=== PATIENT | female | born 1940 | race Two or more races ===

== ENCOUNTER 2024-11-18 17:33 | Inpatient (IN) | payer MEDICARE, MEDICAID, SELFPAY ==
[2024-11-18] VITALS (7 sets, daily range): BP systolic 92–117; BP diastolic 60–71; PULSE 75–100; RESP 18–96; TEMP 36.4–36.8; O2SAT 96–100; BMI 29.7; BMI 22.8
--- NOTE | 2024-11-18 19:12 | XR_ITS ---
Examination: CT cervical spine without contrast 2-D sagittal reconstructions 2-D coronal reconstructions 3-D reconstructions. Exam date and time:November 18, 20242007 hours INDICATIONS: Patient fell today with injury to the neck, neck pain CTDI:vol (mGy) 7.5 DLP: (mGycm) 165 Technique: Multiple 2 mm axial sections of the cervical spine have been obtained. The coronal and sagittal reconstructions have been obtained. 3-D reconstructions have been obtained. Low dose protocols were performed. One or more of the following dose reduction techniques were used; automated exposure control, adjustment of the mA and/or KV according to patient size, use of iterative reconstruction technique. Findings: Axial sections demonstrate intact base of the skull. C1 exhibit satisfactory relationship to the odontoid. No acute cervical vertebral body fracture seen. Alignment posterior spinous processes satisfactory. Small radiolucent areas throughout all visualized bones which may represent focal osteopenia, recommend three-month follow-up plain films cervical spine Impression: No acute cervical fracture.
--- NOTE | 2024-11-18 19:12 | XR_ITS ---
Examination: CT brain head without contrast. 2-D sagittal coronal reconstructions Date and time of exam:November 18, 20242007 hours INDICATIONS: Patient fell today with injury to the head, head pain and dizziness CTDI: vol (mGy):46.8 DLP: (mGycm):875 Technique: Multiple CT axial sections of the brain have been obtained, 5 mm slice thickness. Contrast has not been administered. 2-D sagittal, coronal reconstructions have been obtained Low dose protocols were performed. One or more of the following dose reduction techniques were used; automated exposure control, adjustment of the mA and/or KV according to patient size, use of iterative reconstruction technique. Findings: No significant ventricular enlargement. Intra-axial or extra-axial hemorrhage density is not seen. No mass effect or midline shift Basal cisterns are not remarkable. Fourth ventricle is midline. Cranial vault intact. Impression: Negative for acute hemorrhage, mass effect or midline shift
--- NOTE | 2024-11-18 19:12 | XR_ITS ---
Examination: AP chest single view TECHNIQUE: AP portable upright chest single view Date and time: November 18, 2024 at 1917 hours INDICATIONS: Patient fell one week ago with injury of the chest, chest pain FINDINGS: Normal heart size No pneumothorax Prominent osteopenia Clavicles ribs appear intact IMPRESSION: No pneumothorax pulmonary contusion or hemothorax
--- NOTE | 2024-11-18 19:12 | XR_ITS ---
Examination: CT chest, without intravenous contrast. CT abdomen, without intravenous contrast. CT pelvis, without intravenous contrast. 2-D sagittal and coronal reconstructions. 3-D reconstructions. Date and time of exam:November 18, 20242012 hours INDICATIONS: Patient fell today with injury of the chest and abdomen, chest pain and abdomen pain CTDI vol (mgy) 9.5 DLP (MGycm)585 Technique: Multiple CT images, 3.0 mm slice thickness, obtained chest, abdomen, pelvis, with the high-resolution 64 slice scanner.. Sagittal and coronal 2-D reconstructions are obtained. 3-D reconstructions Low dose protocols were performed. One or more of the following dose reduction techniques were used; automated exposure control, adjustment of the mA and/or KV according to patient size, use of iterative reconstruction technique. Findings: Thoracic aorta and pulmonary arteries intact No pneumothorax or pulmonary contusion The manubrium and body of the sternum intact No thoracic lumbar or sacral Liver is irregular in contour Ribs appear intact Mild fluid in the abdomen including peripheral to the liver and spleen, no liver or definite splenic laceration or renal laceration on this noncontrast study Aorta normal size Negative for pneumoperitoneum Urinary bladder is intact Bones of the pelvis hips intact IMPRESSION: Thoracic aorta pulmonary arteries intact No pneumothorax or pulmonary contusion Suspect primary hepatocellular disease Mild ascites No abdominal parenchymal laceration on this noncontrast study If symptoms persist, recommend repeating this study with intravenous contrast
[2024-11-18 19:52] LABS: Basophils # (Auto) 0.1 Thou/mm3 (0.0-0.2); Basophils % (Auto) 1 % (0-2.5); Eosinophils % (Auto) 0 % (0-10); Hematocrit 35.9 % (36.0-46.0); Hemoglobin 12.3 g/dL (12.0-16.0); Immature Granulocytes % (Auto) 1 % (0-0); Immature Granulocytes Auto 0.04 Thou/mm3 (0.00-0.00); Lymphocytes # (Auto) 1.1 Thou/mm3 (1.0-4.8); Lymphocytes % (Auto) 13 % (10-50); Mean Corpuscular HGB Conc 34.3 g/dl (31.0-37.0); Mean Corpuscular Hemoglobin 28.6 pg (25.0-35.0); Mean Corpuscular Volume 84 fL (80-100); Monocytes # (Auto) 0.6 Thou/mm3 (0.0-0.8); Monocytes % (Auto) 7 % (0-12); Neutrophils # (Auto) 6.8 Thou/mm3 (1.8-7.7); Neutrophils % (Auto) 79 % (37-80); Nucleated Red Blood Cell % 0 /100 WBC (0); Platelet Count 292 Thou/mm3 (140-440); RDW Standard Deviation 50.5 fL (36.4-46.3); White Blood Count 8.6 Thou/mm3 (3.6-11.0)
--- NOTE | 2024-11-18 19:53 | EDNOTE_ITS ---
ED Dizzyness RME/HPI General Chief Complaint: Dizziness Stated Complaint: GENERAL WEAKNESS Time Seen by Provider: 11/18/24 19:11 Arrival date/time: 11/18/24 17:33 83F with history of HTN, thyroid disorder, DM, and dementia presents to ED with family member for several days of increased generalized weakness and some dizziness. Today, patient fell and hit the front of her head. Unwitnessed fall and unknown LOC. Patient denies N/V, CP, SOB, ab pain, vision changes, and seizures. Patient has no pain right now. Normal intake/output. Limitations: no limitations Related Data Home Medications ?Medication ?Instructions ?Recorded ?Confirmed atorvastatin 10 mg tablet 10 mg PO DAILY 11/19/24/0 12/08 empagliflozin 25 mg tablet 25 mg PO DAILY 11/19/2412/08 (Jardiance) levothyroxine 88 mcg tablet 88 mcg PO DAILY 11/19/24 0 11/19/24 semaglutide 3 mg tablet (Rybelsus) 3 mg PO .bedtime 11/19/24 sitagliptin phos 100 mg-metformin 1 tab PO DAILY 11/1911/19/24 ER 1,000 mg tablet,extend rel 24h mp (Janumet XR) Allergies Allergy/AdvReac Type Severity Reaction Status Date / Time No Known Allergies Allergy Verified 11/18/24 17:57 Review of Systems Review of Systems Systems Reviewed: All systems reviewed, normal except as documented Constitutional Constitutional: Reports system reviewed and no additional complaints, except as documented, Reports as per HPI, Denies fever(s), Denies headache(s) and Reports weakness ENT Ears, Nose, Mouth, and Throat: Reports as per HPI, Denies disequilibrium, Denies headache(s) and Reports vertigo Cardiovascular Cardiovascular: Reports system reviewed and no additional complaints, except as documented, Denies chest pain and Denies dyspnea Respiratory Respiratory: Reports system reviewed and no additional complaints, except as documented, Denies cough and Denies dyspnea Gastrointestinal Gastrointestinal: Reports system reviewed and no additional complaints, except as documented, Denies abdominal pain, Denies nausea and Denies vomiting Neurologic Neurologic: Reports system reviewed and no additional complaints, except as documented, Denies confusion, Denies disequilibrium, Denies headache(s), Reports vertigo and Reports weakness Psychiatric Psychiatric: Denies confusion Past Medical History Social History SMOKING STATUS: Current every day smoker ED Exam General Limitations: Present no limitations General appearance: Present alert and in no apparent distress Head Head exam: Present atraumatic Eye Eye exam: Present normal appearance, PERRL and EOMI ENT ENT exam: Present normal exam, normal oropharynx and mucous membranes moist Neck Neck exam: Present normal inspection, full ROM and trachea midline Chest Chest inspection: Present normal inspection and symmetric chest wall rise Respiratory Respiratory exam: Present normal lung sounds bilaterally Cardiovascular Cardiovascular exam: Present regular rate, normal rhythm and normal heart sounds Abdominal Exam Abdominal exam: Present soft and normal bowel sounds Extremities Exam Extremities exam: Present normal inspection and full ROM Back Exam Back exam: Present normal inspection and full ROM Neurological Exam Neurological exam: Present alert, oriented X3 and CN II-XII intact Psychiatric Psychiatric exam: Present normal affect and normal mood Skin Skin exam: Present warm, dry, intact and normal color Course Quality Measures none Orders Category Date Time Status COVID-19 Screening Questionnaire NOW Care 11/18/24 21:41 Active Decision to Admit X1 Care 11/18/24 21:40 Completed EKG (ED ONLY) *Do not use* NOW Care 11/18/24 19:12 Completed Consult to Nephrology Stat Cons 11/18/24 21:[address] cervical spine wo con Stat Exams 11/18/24 19:[address] chest abdomen pelvis wo Stat Exams 11/18/24 19:[address] head/brain wo con Stat Exams 11/18/24 19:12 Completed EKG (ED Only) Stat Exams 11/18/24 19:12 Ordered XR chest 1V portable Stat Exams 11/18/24 19:12 Completed B-Type Natriuretic Peptide Stat Lab 11/18/24 19:39 Completed CBC Stat Lab 11/18/24 19:39 Completed Comprehensive Metabolic Panel Stat Lab 11/18/24 19:39 Completed Creatine Kinase Stat Lab 11/18/24 19:39 Completed Free T4 (Free Thyroxine) Stat Lab 11/18/24 19:39 Completed Lactate (Lactic Acid) Stat Lab 11/18/24 19:39 Completed Magnesium Stat Lab 11/18/24 19:39 Completed Procalcitonin Stat Lab 11/18/24 19:39 Completed Thyroid Stimulating Hormone Stat Lab 11/18/24 19:39 Completed Troponin I Stat Lab 11/18/24 19:39 Completed Urinalysis, C/S if Indicated Stat Lab 11/18/24 20:49 Completed VBG [Venous Blood Gas] Stat Lab 11/18/24 19:39 Completed ALBUTEROL RT 0.5ml [Proventil Rt 0.5ml] Med 11/18/24 21:49 Discontinued 2.5 mg INH X1 ONE Dextrose 5%-Water [D5w] 500 ml Med 11/19/24 10:01 Pending Sodium Bicarb 8.4% 50ml Vial* 88.23 meq IV 100 mls/hr Furosemide [Lasix Inj] Med 11/18/24 21:49 Discontinued 40 mg IVP X1 ONE Sod Polystyrene Sulfon Susp [Kayexalate Susp] Med 11/18/24 21:49 Discontinued 30 gm PO X1 ONE Sodium Chloride Rt Carole 0.9% [NS Rt Carole 0.9%] Med 11/18/24 21:49 Active 3 ml INH PRN PRN Vital Signs Vital signs: Vital Signs Temperature 98.2 F 11/18/24 17:34 Pulse Rate 93 11/18/24 17:34 Respiratory Rate 19 11/18/24 17:34 Blood Pressure 92/60 11/18/24 17:34 Pulse Oximetry (%) 97 11/18/24 17:34 Oxygen Delivery Method Room Air 11/18/24 17:34 O2 at 97% on RA and WNLs Dizziness MDM Narrative MDM Narrative:: 83F with history of HTN, thyroid disorder, DM, and dementia presents to ED with family member for several days of increased generalized weakness and some dizziness. Today, patient fell and hit the front of her head. Unwitnessed fall and unknown LOC. Patient denies N/V, CP, SOB, ab pain, vision changes, and seizures. Patient has no pain right now. Normal intake/output. Physical exam reveals normal pupil response and EOM. CN II-XII grossly intact. Neck ROM normal. Speech normal. Normal WOB. No ab/back tenderness. Extremities normal, except for mild skin abrasion on L knee/lower leg. No tenderness. ROM and gait intact. Strength equal bilaterally. Patient is afebrile, calm, and alert. CT unremarkable. UA contaminated. CBC unremarkable. CMP remarkable for K 5.6, with low bicarb and elevated Cr. Normal anion-gap. Blood pH low at 7.2. Spoke to Dr. Sanford, who recommends bicarb drop and urine electrolytes to check for renal tubular acidosis; she will consult. Spoke to IM resident reporting to Dr. Mejia IM, who will admit. Patient data External records reviewed:: [facility] previous records Clinical information provided by:: patient Social determinants that could affect healthcare access:: none Patient has the following chronic illnesses:: none How is presenting disease/condition affected by chronic disease/condition?: no chronic disease Evaluation data The following diagnostics were reviewed and interpreted by me:: lab results, radiology exam(s) and EKG tracing(s) Lab and/or radiology exams considered but not ordered:: ordered Interpretation Summary: above Medications / Prescriptions Medications or Prescriptions considered but not ordered:: ordered Medication administrations:: Medication Administration History Acetaminophen (Acetaminophen 325 Mg Tablet) 650 mg PO Q6H PRN PRN Reason: Fever >99.5 Stop: 12/18/24 22:07 Acetaminophen (Acetaminophen 325 Mg Tablet) 1,000 mg PO Q6H PRN PRN Reason: PAIN SCALE 1-3 (mild Stop: 12/18/24 22:07 Dextrose (Dextrose 50%-Water Inj 50 Ml Syringe) 25 ml IV Q15MIN PRN PRN Reason: BG 50-70 responsive npo pt Stop: 12/18/24 22:07 Dextrose (Dextrose 50%-Water Inj 50 Ml Syringe) 50 ml IV Q15MIN PRN PRN Reason: BG <50 OR BG <70 & pt unresponsive Stop: 12/18/24 22:07 Docusate Sodium (Docusate Sod 100 Mg Capsule) 100 mg PO QDAY [facility]; Protocol Stop: 12/19/24 08:59 Glucagon (Glucagon Inj 1 Mg Vial) 1 mg IM Q15MIN PRN PRN Reason: BG <70, and no IV access Heparin Sodium (Porcine) (Heparin Sod Inj 5000 Unit/Ml Vial) 5,000 unit SC Q8HR [facility] Stop: 12/03/24 05:59 Sodium Bicarbonate 88.23 meq/ (Dextrose) 588.23 mls @ 100 mls/hr IV .Q5H53M [facility] Stop: 12/19/24 10:00 Sodium Bicarbonate 88.23 meq/ (Dextrose) 588.23 mls @ 100 mls/hr IV .Q5H53M [facility] Stop: 11/19/24 10:00 Last Admin: 11/18/24 22:39 Dose: 100 mls/hr Documented By: JALEN Insulin Human Lispro (Insulin Lispro (Admelog) 1 Unit/0.01 Ml Unit) 0 unit SC AC [facility]; Protocol Stop: 12/19/24 07:29 Levothyroxine Sodium (Levothyroxine Sodium 100 Mcg Tablet) 100 mcg PO ACBR [facility] Stop: 12/19/24 05:59 Nicotine (Nicotine Patch 21 Mg/24 Hr Patch.Td24) 21 mg TOP QDAY [facility] Stop: 12/19/24 08:59 Ondansetron HCl (Ondansetron Inj 2 Mg/Ml Inj 2 Ml) 4 mg IVP Q6H PRN; Protocol PRN Reason: NAUSEA OR VOMITING Stop: 12/18/24 22:07 Sennosides (Senna Tablet) 1 tab PO QDAY [facility]; Protocol Stop: 12/19/24 08:59 Sodium Chloride (Sodium Chloride Rt Carole 0.9% 3 Ml Nebu) 3 ml INH PRN PRN PRN Reason: SOLN Stop: 12/18/24 21:48 Last Admin: 11/18/24 22:26 Dose: 3 ml Documented By: NEELIMA Discontinued Medications Albuterol (Albuterol Rt 2.5 Mg/0.5 Ml Nebu) 2.5 mg INH X1 ONE Stop: 11/18/24 21:50 Last Admin: 11/18/24 22:26 Dose: 2.5 mg Documented By: NEELIMA Furosemide (Furosemide Inj 10 Mg/Ml Vial 2 Ml) 40 mg IVP X1 ONE Stop: 11/18/24 21:50 Last Admin: 11/18/24 22:38 Dose: 40 mg Documented By: JALEN Sodium Chloride (Ns) 500 mls @ 999 mls/hr IV .Q31M ONE Stop: 11/18/24 23:12 Last Infusion: 11/19/24 00:27 Dose: Infused Documented By: Admin: 11/18/24 22:49 Dose: 999 mls/hr Documented By: BIBIANA Sodium Polystyrene Sulfonate (Sod Polystyrene Sulfon Susp 15 Gm/60 Ml Btl) 30 gm PO X1 ONE Stop: 11/18/24 21:50 Last Admin: 11/18/24 22:44 Dose: 30 gm Documented By: JALEN above Consultations Consultation(s) initiated? (list below): Yes Diagnosis Dizziness Differential Diagnosis: adverse reaction to drug, benign paroxysmal positional vertigo, orthostatic hypotension, vertebral basilar insufficiency, cerebrovascular accident, acute vestibular neuronitis, transient cerebral ischemia and other (dehydration, fall, CHI, soft tissue contusion, UTI, weakness, electrolyte abnormality, CATE) Most likely diagnosis given after review of the tests above:: weakness Admission Indicated Admission indicated?: indicated Admission Request Was there a request for admission?: Yes Admission Attestation Admission request attestation: Discussed case with [Dr. Mejia] from Hospitalist service regarding admission. Discussed patients ED course, exam findings, labs, and radiology results. The Hospitalist [agrees] to accept the patient for admission. Disposition Plan Disposition Plan: Admit Discharge Plan Plan Patient Disposition: Admit Acute Care w/in Hospital Problem List Clinical Impression: Weakness
[2024-11-18 20:24] LABS: B-Type Natriuretic Peptide 26 pg/mL (0-100)
[2024-11-18 20:37] LABS: Alanine Aminotransferase < 7 U/L (10-49); Albumin, Serum 4.5 gm/dL (3.4-4.8); Albumin/Globulin Ratio 1.6 (1.2-2.2); Alkaline Phosphatase 80 U/L (46-116); Anion Gap 11 (7-16); Aspartate Amino Transferase 18 U/L (0-34); BUN/Creatinine Ratio 28 Ratio (12-20); Bilirubin,Total 0.2 mg/dL (0.3-1.2); Blood Urea Nitrogen 45 mg/dL (9-23); Calcium 9.6 mg/dL (8.3-10.6); Calcium (Corrected) 9.6 mg/dL (8.5-10.1); Chloride 113 mMol/L (98-107); Creatine Kinase 117 U/L (34-171); Creatinine (Component) 1.6 mg/dL (0.6-1.3); Estimated Creatinine Clearance 21.4 mL/min (>60); Free T4 (Free Thyroxine) 1.69 ng/dL (0.89-1.76); Globulin 2.8 gm/dL (2.3-3.5); Glucose 126 mg/dL (74-106); Magnesium 2.4 mg/dL (1.6-2.6); Osmolality,Calculated 287 (275-295); Potassium 5.6 mMol/L (3.4-5.1); Procalcitonin 0.07 ng/ml (0.0-0.49); Sodium 137 mMol/L (136-145); Thyroid Stimulating Hormone 0.18 uIU/mL (0.55-4.78); Total Protein 7.3 gm/dL (5.7-8.2); Troponin I < 0.020 ng/mL (0.0-0.045); eGFR 32 See Note
[2024-11-18 20:39] LABS: Carbon Dioxide 13.1 mMol/L (20.0-31.0)
[2024-11-18 21:31] LABS: Base Excess, Venous -14 (-3-3); O2 Saturation, Venous 70 % (96-97); PCO2, Venous 35 mmHg (36-56); PO2, Venous 39 mmHg (15-58)
[2024-11-18 21:41] LABS: Collection Type, Urine Clean Catch
[2024-11-18 22:10] LABS: Bilirubin,Urine Negative (Negative); Blood,Urine 1+ (Negative); Clarity,Urine Clear (Clear/Hazy); Color,Urine Lt-Yellow (Lt Yel-Yel); Culture Indicated,Urine Contaminated; Glucose, Urine 4+ (Negative); Hyaline Casts,Urine < 1 /hpf (0-1); Ketones,Urine Trace (Negative); Leukocyte Esterase,Urine Positive (Negative); Nitrite,Urine Negative (Negative); Protein,Urine 1+ (Neg - Trace); RBC,Urine 35 /hpf (0-3); Specific Gravity,Urine 1.019 (1.001-1.035); Squamous Epithelial Cell,Urine 24 /hpf (0-5); Urobilinogen,Urine Negative mg/dL (0.0-1.0); WBC,Urine 11 /hpf (0-5)
--- NOTE | 2024-11-18 22:12 | PD.RESHP ---
Documentation for date of: 11/18/24 [facility] History of Present Illness Chief complaint: Weakness History of present illness: 83-year-old female active smoker with past medical history of dementia, diabetes mellitus, hypothyroidism who presented to the ED with generalized weakness and dizziness. Patient yesterday was going to get the mail and tripped and hit her head. Daughter who is the primary caregiver reports the patient has been having weakness on and off for the past 2 years. Daughter states that she had recent labs about 1 week ago that were reviewed by her PCP which all were found normal. States that she had adequate p.o. intake. Here in the ED patient was found with a bicarb of 13, potassium of 5.[address] Sanford who recommended admission and place the patient on bicarb drip. Patient at this time denies any shortness of breath, chest pain, abdominal pain, nausea, vomiting, headache, blurry vision. ED course: ED vitals: BP 92/60, HR 93, RR 19, O2 sat 97% on room air ED labs: CBC unremarkable, VBG shows some acidosis, CHEM panel shows potassium 5.6, bicarb 13, BUN 45, creatinine 1.6, EGFR 32, glucose 126, head CT negative, cervical spine CT negative for fracture, chest x-ray negative, CT abdomen pelvis shows some mild ascites, PMHx: As above SX Hx: Wrist surgery Social Hx: Current smoker 2 packs/day, denies alcohol use, denies illicit substances including THC FH X: Unknown Review of Systems Review of Systems Systems Reviewed: All systems reviewed, normal except as documented Narrative Review of Systems: All 12 systems reviewed and found normal as otherwise stated in the HPI. Exam Vital Signs Temp Pulse Resp BP Pulse Ox O2 Del Method 97.6 F 84 19 117/71 99 Room Air 11/18/24 18:54 11/18/24 18:54 11/18/24 18:54 11/18/24 18:54 11/18/24 18:54 11/18/24 18:54 Narrative Exam Physical Exam GENERAL: NAD, GCS of 15, demented, frail HEENT: Moist mucosa. Eyes open, symmetrical, & clear CARDIO: Heart RRR, no obvious murmurs PULM: No noted coughing/dyspnea CTA B/L, no R/W/R GI: Abdomen soft, nondistended, no pain on palpation. BSx4 SKIN/MSK/EXT: No wounds/rashes/edema/amputations, no pain on palpation. Pedal pulses present B/L NEURO:able to move all 4 extremities Results: Labs 11/18/24 19:39 11/18/24 19:39 Labs: Short CBC 11/18/24 Range/Units 19:39 WBC 8.6 (3.6-11.0) Thou/mm3 Hgb 12.3 (12.0-16.0) g/dL Hct 35.9 L (36.0-46.0) % Plt Count 292 (140-440) Thou/mm3 BMP 11/18/24 19:39 Sodium 137 Potassium 5.6 H Chloride 113 H Carbon Dioxide 13.1 L* BUN 45 H Creatinine 1.6 H Glucose 126 H Calcium 9.6 Cardiac Enzymes 11/18/24 Range/Units 19:39 Total Creatine Kinase 117 (34-171) U/L Troponin I < 0.020 (0.0-0.045) ng/mL Liver Function 11/18/24 Range/Units 19:39 Total Bilirubin 0.2 L (0.3-1.2) mg/dL AST 18 (0-34) U/L ALT < 7 L (10-49) U/L Alkaline Phosphatase 80 (46-116) U/L Albumin 4.5 (3.4-4.8) gm/dL Urine 11/18/24 Range/Units 20:49 Urine Color Lt-Yellow (Lt Yel-Yel) Urine Clarity Clear (Clear/Hazy) Urine pH 6.0 (5.0-7.0) Ur Specific [place] 1.019 (1.001-1.035) Urine Protein 1+ A (Neg - Trace) Urine Glucose (UA) 4+ A (Negative) ABG Interpretation ABG results: 11/18/24 19:39 VBG pH 7.20 L VBG pCO2 35 L VBG pO2 39 VBG Base Excess -14 L Quality Measures Quality Measures none Advance care planning discussed with:: patient Medications Home Medications and Allergies Home Medications ?Medication ?Instructions ?Recorded ?Confirmed ?Type atorvastatin 10 mg tablet 10 mg PO DAILY 11/19/24 11/19/24 History empagliflozin 25 mg tablet 25 mg PO DAILY 11/19/24 11/19/24 History (Jardiance) levothyroxine 88 mcg tablet 88 mcg PO DAILY 11/19/24 11/19/24 History semaglutide 3 mg tablet (Rybelsus) 3 mg PO .bedtime 11/19/24 11/19/24 History sitagliptin phos 100 mg-metformin 1 tab PO DAILY 11/19/24 11/19/24 History ER 1,000 mg tablet,extend rel 24h mp (Janumet XR) Allergies Allergy/AdvReac Type Severity Reaction Status Date / Time No Known Allergies Allergy Verified 11/18/24 17:57 Visit Medications Sodium Bicarbonate 88.23 meq/ (Dextrose) 588.23 mls @ 100 mls/hr IV .Q5H53M [facility] Stop: 12/18/24 22:06 Sodium Chloride (Sodium Chloride Rt Carole 0.9% 3 Ml Nebu) 3 ml INH PRN PRN PRN Reason: SOLN Stop: 12/18/24 21:48 Discontinued Medications Albuterol (Albuterol Rt 2.5 Mg/0.5 Ml Nebu) 2.5 mg INH X1 ONE Stop: 11/18/24 21:50 Furosemide (Furosemide Inj 10 Mg/Ml Vial 2 Ml) 40 mg IVP X1 ONE Stop: 11/18/24 21:50 Sodium Polystyrene Sulfonate (Sod Polystyrene Sulfon Susp 15 Gm/60 Ml Btl) 30 gm PO X1 ONE Stop: 11/18/24 21:50 Assessment & Plan Plan 83-year-old female active smoker with past medical history as stated above who presented to the ED due to generalized weakness. Admitted for acidosis. 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 Sanford who recommended admission and place the patient on bicarb drip Initially with a bicarb of 13, VBG shows pH of 7.2, patient denies any diarrhea, likely renal losses ? IVF's ? Bicarb drip ? Nephro consulted appreciate recs ? Albuterol, Lasix, Kayexalate for hyperkalemia ? Follow-up CMP ? Follow-up EKG ?urine lytes ordered ? renal US orderd #Tobacco use ?Nicotine patch as needed #Diabetes mellitus type 2 ? SSI ? Hypoglycemia protocol in place #Hypothyroidism ? Levothyroxine resumed as taken at home Health Maintenance: Disposition: Med telemetry Fluids: None Feeding: Thrombo prophylaxis: SCDs Gastric Ulcer prophylaxis: Pantoprazole CODE STATUS: Full code Case discussed with my attending Dr. Roberto Miller MD PGY-1 Attending Provider Attestation/Addendum I have examined the patient, reviewed labs and imaging findings, discussed the case with the resident(s), and reviewed entered orders. I agree with the plan of care as outlined in this note, with these additional summaries/recommendations: 83-year-old female with past medical history DM, hyperlipidemia, dementia, current smoker presented to ED with chief complaint of worsening generalized weakness, decreased energy, decreased urine output for last 2 days. Labs show CATE with potassium 5.6 and bicarb of 13.1 with normal anion gap. Nephrology was consulted who recommended admission for further workup and management of CATE on CKD. Bicarb drip initiated, will DC in a.m. Likely intrarenal source of NAGMA, will obtain urine lites to further classify NAGMA. Family denies any recent infections, new medications. Gerry Mejia MD
[2024-11-18] MEDS: ALBUTEROL RT 2.5 MG/0.5 ML NEBU INH (22:26)
[2024-11-18] MEDS: SODIUM CHLORIDE RT SOL 0.9% 3 ML NEBU INH (22:26)
[2024-11-18] MEDS: FUROSEMIDE INJ 10 MG/ML VIAL 2 ML 40 MG IVP (22:38)
[2024-11-18] MEDS: Sodium Bicarb 8.4% 50ml Vial* 88.23 MEQ in DEXTROSE 5%-WATER 500 ML 100 MEQ IV (22:39)
[2024-11-18] MEDS: SOD POLYSTYRENE SULFON SUSP 15 GM/60 ML BTL 30 GM PO (22:44)
[2024-11-18] MEDS: SODIUM CHLORIDE 0.9% 500 ML 500 ML 999 ML IV (22:49)
[2024-11-18 23:20] LABS: Chloride,Urine Random 81.4 mMol/L (55.0-125.0); Potassium,Urine Random 39 mMol/L (12-62); Sodium,Urine Random 66.5 mMol/L (20.0-110.0)
[2024-11-19] VITALS (8 sets, daily range): BP systolic 101–118; BP diastolic 57–62; PULSE 69–89; RESP 15–98; TEMP 36.1–36.8; O2SAT 95–98; BMI 28.0
--- NOTE | 2024-11-19 | XR_ITS ---
Examination: Retroperitoneal ultrasound, complete Technique: Multiple high resolution grayscale images of the retroperitoneum obtained, including kidneys and bladder. Exam date and time:November 19, 2024 0550 hours INDICATIONS: Weakness dizziness today with acute renal insufficiency FINDINGS: Right kidney 8.6 cm renal cortex 1.3 cm Left kidney 9.2 cm renal cortex 1.8 cm Moderate bilateral renal parenchymal scar formation No hydronephrosis Contracted urinary bladder IMPRESSION: Small kidneys with bilateral renal cortical thinning
[2024-11-19] MEDS: Sodium Bicarb 8.4% 50ml Vial* 88.23 MEQ in DEXTROSE 5%-WATER 500 ML 100 MEQ IV (05:36)
[2024-11-19] MEDS: HEPARIN SOD INJ 5000 UNIT/ML VIAL SC ×3 (05:36→21:37)
[2024-11-19] MEDS: LEVOTHYROXINE SODIUM 100 MCG TABLET PO (05:36)
[2024-11-19 05:52] LABS: Basophils # (Auto) 0.1 Thou/mm3 (0.0-0.2); Basophils % (Auto) 1 % (0-2.5); Eosinophils # (Auto) 0.1 Thou/mm3 (0.0-0.5); Eosinophils % (Auto) 1 % (0-10); Hematocrit 32.5 % (36.0-46.0); Hemoglobin 11.6 g/dL (12.0-16.0); Immature Granulocytes % (Auto) 0 % (0-0); Immature Granulocytes Auto 0.03 Thou/mm3 (0.00-0.00); Lymphocytes % (Auto) 13 % (10-50); Mean Corpuscular HGB Conc 35.7 g/dl (31.0-37.0); Mean Corpuscular Hemoglobin 28.9 pg (25.0-35.0); Mean Corpuscular Volume 81 fL (80-100); Monocytes # (Auto) 0.5 Thou/mm3 (0.0-0.8); Monocytes % (Auto) 7 % (0-12); Neutrophils # (Auto) 6.2 Thou/mm3 (1.8-7.7); Neutrophils % (Auto) 78 % (37-80); Nucleated Red Blood Cell % 0 /100 WBC (0); Platelet Count 289 Thou/mm3 (140-440); RDW Standard Deviation 47.4 fL (36.4-46.3); Red Blood Count 4.02 Miln/mm3 (4.00-5.20); White Blood Count 7.9 Thou/mm3 (3.6-11.0)
[2024-11-19 06:01] LABS: Glucose Estimated Average 171 mg/dL (80-131); Hemoglobin A1C 7.6 % Hgb (4.8-6.0)
[2024-11-19 06:15] LABS: Alanine Aminotransferase < 7 U/L (10-49); Albumin, Serum 4.3 gm/dL (3.4-4.8); Albumin/Globulin Ratio 1.7 (1.2-2.2); Alkaline Phosphatase 75 U/L (46-116); Anion Gap 14 (7-16); Aspartate Amino Transferase 19 U/L (0-34); BUN/Creatinine Ratio 25 Ratio (12-20); Bilirubin,Total 0.3 mg/dL (0.3-1.2); Blood Urea Nitrogen 35 mg/dL (9-23); Calcium 9.5 mg/dL (8.3-10.6); Calcium (Corrected) 9.5 mg/dL (8.5-10.1); Carbon Dioxide 15.9 mMol/L (20.0-31.0); Chloride 104 mMol/L (98-107); Creatinine (Component) 1.4 mg/dL (0.6-1.3); Estimated Creatinine Clearance 26.1 mL/min (>60); Globulin 2.5 gm/dL (2.3-3.5); Glucose 151 mg/dL (74-106); Osmolality,Calculated 279 (275-295); Phosphorous 3.6 mg/dL (2.4-5.1); Potassium 3.7 mMol/L (3.4-5.1); Sodium 134 mMol/L (136-145); Total Protein 6.8 gm/dL (5.7-8.2); eGFR 38 See Note
[2024-11-19] MEDS: DOCUSATE SOD 100 MG CAPSULE PO (09:47)
[2024-11-19] MEDS: SENNA TABLET 1 TAB PO (09:47)
[2024-11-19] MEDS: NICOTINE PATCH 21 MG/24 HR PATCH.TD24 TOP (09:48)
--- NOTE | 2024-11-19 11:47 | PD.RESPRO ---
Documentation for date of: 11/19/24 Subjective Subjective Interval history: the Exam Vital Signs Temp Pulse Resp BP Pulse Ox O2 Del Method 98.3 F 72 15 118/61 98 Room Air 11/19/24 08:00 11/19/24 08:00 11/19/24 08:00 11/19/24 08:00 11/19/24 08:00 11/19/24 08:00 Objective Labs 11/19/24 05:07 11/19/24 05:07 Labs: Laboratory Results - last 24 hr 11/18/24 11/18/24 11/19/24 19:39 20:49 05:07 WBC 8.6 7.9 RBC 4.30 4.02 Hgb 12.3 11.6 L Hct 35.9 L 32.5 L MCV 84 81 MCH 28.6 28.9 MCHC 34.3 35.7 RDW Std Deviation 50.5 H 47.4 H Plt Count 292 289 Neut % (Auto) 79 78 Lymph % (Auto) [address] [place] % (Auto) 7 7 Eos % (Auto) 0 1 Baso % (Auto) 1 1 Neut # (Auto) 6.8 6.2 Lymph # (Auto) 1.[address] # (Auto) 0.6 0.5 Eos # (Auto) 0.0 0.1 Baso # (Auto) 0.1 0.1 Immature Gran # (Auto) 0.04 H 0.03 H Absolute Nucleated RBC 0.00 0.00 Immature Gran % 1 H 0 Nucleated RBC % 0 0 VBG pH 7.20 L VBG pCO2 35 L VBG pO2 39 VBG O2 Sat (Alexis) 70 L VBG Base Excess -14 L Sodium 137 134 L Potassium 5.6 H 3.7 D Chloride 113 H 104 Carbon Dioxide 13.1 L* 15.9 L Anion Gap 11 14 BUN 45 H 35 H Creatinine 1.6 H 1.4 H Estim Creat Clear Calc 21.4 L 26.1 L eGFR 32 L 38 L BUN/Creatinine Ratio 28 H 25 H Glucose 126 H [address] Glu mg/dL 171 H Hemoglobin A1c 7.6 H Calculated Osmolality 287 279 Lactic Acid 1.0 Calcium 9.6 9.5 Corrected Calcium 9.6 9.5 Phosphorus 3.6 Magnesium 2.4 2.0 Total Bilirubin 0.2 L 0.3 AST 18 19 ALT < 7 L < 7 L Alkaline Phosphatase 80 75 Total Creatine Kinase 117 Troponin I < 0.020 B-Natriuretic Peptide 26 Total Protein 7.3 6.8 Albumin 4.5 4.3 Globulin 2.8 2.5 Albumin/Globulin Ratio 1.6 1.7 Procalcitonin 0.07 TSH 0.18 L Free T4 1.69 Ur Collection Type Clean Catch Urine Color Lt-Yellow Urine Clarity Clear Urine pH 6.0 Ur Specific [place] 1.019 Urine Protein 1+ A Urine Glucose (UA) 4+ A Urine Ketones Trace Urine Blood 1+ A Urine Nitrite Negative Urine Bilirubin Negative Urine Urobilinogen (Auto) Negative Ur Leukocyte Esterase Positive Urine RBC 35 H Urine WBC 11 H Ur Squamous Epith Cells 24 H Urine Bacteria None Hyaline Casts < 1 Ur Culture Indicated? Contaminated Ur Random Sodium 66.5 Ur Random Potassium 39 Ur Random Chloride 81.4 ABG Interpretation ABG results: 11/18/24 19:39 VBG pH 7.20 L VBG pCO2 35 L VBG pO2 39 VBG Base Excess -14 L Quality Measures Quality Measures none Assessment & Plan Assessment Current Active Medications: Generic Name Dose Route Start Last Admin Trade Name Freq PRN Reason Stop Dose Admin Acetaminophen 650 mg 11/18/24 22:08 Acetaminophen 325 Mg Tablet PO 12/18/24 22:07 Q6H PRN Fever >99.5 Acetaminophen 1,000 mg 11/18/24 22:08 Acetaminophen 325 Mg Tablet PO 12/18/24 22:07 Q6H PRN PAIN SCALE 1-3 (mild Citric Acid/Sodium Citrate 30 ml 11/19/24 10:00 Citric Acid/Sodium Citr 15 Ml Udc (Bicitra) PO 12/19/24 09:59 BID FAUSTINA Dextrose 25 ml 11/18/24 22:08 Dextrose 50%-Water Inj 50 Ml Syringe IV 12/18/24 22:07 Q15MIN PRN BG 50-70 responsive npo pt Dextrose 50 ml 11/18/24 22:08 Dextrose 50%-Water Inj 50 Ml Syringe IV 12/18/24 22:07 Q15MIN PRN BG <50 OR BG <70 & pt unresponsive Docusate Sodium 100 mg 11/19/24 09:00 11/19/24 09:47 Docusate Sod 100 Mg Capsule PO 12/19/24 08:59 100 mg QDAY FAUSTINA Administration Protocol Glucagon 1 mg 11/18/24 22:08 Glucagon Inj 1 Mg Vial IM Q15MIN PRN BG <70, and no IV access Heparin Sodium (Porcine) 5,000 unit 11/19/24 06:00 11/19/24 05:36 Heparin Sod Inj 5000 Unit/Ml Vial SC 12/03/24 05:59 5,000 unit Q8HR FAUSTINA Administration Insulin Human Lispro 0 unit 11/19/24 07:30 11/19/24 07:05 Insulin Lispro (Admelog) 1 Unit/0.01 Ml Unit SC 12/19/24 07:29 Not Given AC [facility] Protocol Levothyroxine Sodium 88 mcg 11/20/24 06:00 Levothyroxine Sodium 88 Mcg Tablet PO 12/20/24 05:59 ACBR FAUSTINA Nicotine 21 mg 11/19/24 09:00 11/19/24 09:48 Nicotine Patch 21 Mg/24 Hr Patch.Td24 TOP 12/19/24 08:59 21 mg QDAY FAUSTINA Administration Ondansetron HCl 4 mg 11/18/24 22:08 Ondansetron Inj 2 Mg/Ml Inj 2 Ml IVP 12/18/24 22:07 Q6H PRN NAUSEA OR VOMITING Protocol Sennosides 1 tab 11/19/24 09:00 11/19/24 09:47 Senna Tablet PO 12/19/24 08:59 1 tab QDAY FAUSTINA Administration Protocol Sodium Chloride 3 ml 11/18/24 21:49 11/18/24 22:26 Sodium Chloride Rt Carole 0.9% 3 Ml Nebu INH 12/18/24 21:48 3 ml PRN PRN Administration SOLN
--- NOTE | 2024-11-19 11:53 | PD.RESCONSUL ---
HPI Data of Consult Consult date: 11/19/24 Requesting Physician: Miesha Patel MD Admitting Provider: Gerry Mejia MD Attending Provider: Miesha Patel MD Primary Care Provider: Ijeoma Freeman MD Consult Narrative Reason for consult: CATE, metabolic acidosis History of present illness: Ms. Wade is a 83-year-old female, Greek only speaker, patient's granddaughter contributed to H&P. Active smoker with past medical history of dementia, diabetes mellitus, hypothyroidism who presented to the ED with generalized weakness and dizziness and mechanical fall. Per patient's granddaughter, she has a past medical history of dementia, and has been having frequent episodes of forgetfulness, unable to reliably state her symptoms. Patient has been tripping over and falling recently though denied passing out. Denied head injury. Also denied diarrhea or vomiting. Per granddaughter, patient's her oral intake has been poor. At the ED initial vitals showed blood pressure 92/60, heart rate 93, saturating well on room air, CBC showed mild anemia, CHEM panel pertinent for metabolic acidosis, normal anion gap, acute kidney injury, creatinine 1.6. VBG was done which showed findings consistent with metabolic acidosis pH 7.20, pCO2 35 and pO2 39. Nephrology was consulted for acute kidney injury and metabolic acidosis. ED course: ED vitals: BP 92/60, HR 93, RR 19, O2 sat 97% on room air ED labs: CBC unremarkable, VBG shows some acidosis, CHEM panel shows potassium 5.6, bicarb 13, BUN 45, creatinine 1.6, EGFR 32, glucose 126, head CT negative, cervical spine CT negative for fracture, chest x-ray negative, CT abdomen pelvis shows some mild ascites. PMHx: As above SX Hx: Wrist surgery Social Hx: Current smoker 2 packs/day, denies alcohol use, denies illicit substances including THC FH X: Unknown cc:: cc: Miesha Patel MD Review of Systems Review of Systems Narrative Review of Systems: General: Denies fevers or chills HEENT: Denies congestion or sore throat Heart: Denies chest pain or palpitations Lungs: Denies shortness of breath or cough Abdomen: Denies diarrhea, nausea, vomiting, constipation, bright red blood per rectum or melena Genitourinary: Denies frequency, urgency, dysuria, or hematuria Musculoskeletal: Denies joint pain, denies muscular pain Neurology: Denies any numbness, tingling Review of systems otherwise negative except what is mentioned above. Past Medical History Past Medical History CARDIAC: Positive Hypercholesterolemia and Hypertension; Negative Congestive Heart Failure RESPIRATORY: Negative Chronic Obstructive Pulmonary Disease (COPD) GENITOURINARY: Negative Renal Disease ENDOCRINE: Positive Diabetes Mellitus Type 1; Negative Diabetes Mellitus Type 2 OTHER HISTORY: Positive Hospitalization and Falls (Last 11/18/2024); Negative Blood Transfusions or Anesthesia Reactions Surgical History SURGICAL: Positive Abdominal Surgery and Joint Replacement (Wrist surgery.) Social History SMOKING STATUS: Current every day smoker Exam Vital Signs Temp Pulse Resp BP Pulse Ox O2 Del Method 98.3 F 72 15 118/61 98 Room Air 11/19/24 08:00 11/19/24 08:00 11/19/24 08:00 11/19/24 08:00 11/19/24 08:00 11/19/24 08:00 Results Labs 11/20/24 04:47 11/20/24 04:47 Labs: Short CBC 11/18/24 11/19/24 Range/Units 19:39 05:07 WBC 8.6 7.9 (3.6-11.0) Thou/mm3 Hgb 12.3 11.6 L (12.0-16.0) g/dL Hct 35.9 L 32.5 L (36.0-46.0) % Plt Count 292 289 (140-440) Thou/mm3 BMP 11/18/24 11/19/24 19:39 05:07 Sodium 137 134 L Potassium 5.6 H 3.7 D Chloride 113 H 104 Carbon Dioxide 13.1 L* 15.9 L BUN 45 H 35 H Creatinine 1.6 H 1.4 H Glucose 126 H 151 H Calcium 9.6 9.5 Cardiac Enzymes 11/18/24 Range/Units 19:39 Total Creatine Kinase 117 (34-171) U/L Troponin I < 0.020 (0.0-0.045) ng/mL Liver Function 11/18/24 11/19/24 Range/Units 19:39 05:07 Total Bilirubin 0.2 L 0.3 (0.3-1.2) mg/dL AST 18 19 (0-34) U/L ALT < 7 L < 7 L (10-49) U/L Alkaline Phosphatase 80 75 (46-116) U/L Albumin 4.5 4.3 (3.4-4.8) gm/dL Urine 11/18/24 Range/Units 20:49 Urine Color Lt-Yellow (Lt Yel-Yel) Urine Clarity Clear (Clear/Hazy) Urine pH 6.0 (5.0-7.0) Ur Specific [place] 1.019 (1.001-1.035) Urine Protein 1+ A (Neg - Trace) Urine Glucose (UA) 4+ A (Negative) ABG Interpretation ABG results: 11/18/24 19:39 VBG pH 7.20 L VBG pCO2 35 L VBG pO2 39 VBG Base Excess -14 L Quality Measures Quality Measures none Advance care planning discussed with:: patient Medications Home Medications and Allergies Home Medications ?Medication ?Instructions ?Recorded ?Confirmed ?Type atorvastatin 10 mg tablet 10 mg PO DAILY 11/19/24 11/19/24 History empagliflozin 25 mg tablet 25 mg PO DAILY 11/19/24 11/19/24 History (Jardiance) semaglutide 3 mg tablet (Rybelsus) 3 mg PO .bedtime 11/19/24 11/19/24 History sitagliptin phos 100 mg-metformin 1 tab PO DAILY 11/19/24 11/19/24 History ER 1,000 mg tablet,extend rel 24h mp (Janumet XR) Allergies Allergy/AdvReac Type Severity Reaction Status Date / Time No Known Allergies Allergy Verified 11/18/24 17:57 Visit Medications Acetaminophen (Acetaminophen 325 Mg Tablet) 650 mg PO Q6H PRN PRN Reason: Fever >99.5 Stop: 12/18/24 22:07 Acetaminophen (Acetaminophen 325 Mg Tablet) 1,000 mg PO Q6H PRN PRN Reason: PAIN SCALE 1-3 (mild Stop: 12/18/24 22:07 Citric Acid/Sodium Citrate (Citric Acid/Sodium Citr 15 Ml Udc (Bicitra)) 30 ml PO BID FAUSTINA Stop: 12/19/24 09:59 Dextrose (Dextrose 50%-Water Inj 50 Ml Syringe) 25 ml IV Q15MIN PRN PRN Reason: BG 50-70 responsive npo pt Stop: 12/18/24 22:07 Dextrose (Dextrose 50%-Water Inj 50 Ml Syringe) 50 ml IV Q15MIN PRN PRN Reason: BG <50 OR BG <70 & pt unresponsive Stop: 12/18/24 22:07 Docusate Sodium (Docusate Sod 100 Mg Capsule) 100 mg PO QDAY [facility]; Protocol Stop: 12/19/24 08:59 Last Admin: 11/19/24 09:47 Dose: 100 mg Glucagon (Glucagon Inj 1 Mg Vial) 1 mg IM Q15MIN PRN PRN Reason: BG <70, and no IV access Heparin Sodium (Porcine) (Heparin Sod Inj 5000 Unit/Ml Vial) 5,000 unit SC Q8HR [facility] Stop: 12/03/24 05:59 Last Admin: 11/19/24 05:36 Dose: 5,000 unit Insulin Human Lispro (Insulin Lispro (Admelog) 1 Unit/0.01 Ml Unit) [address] [facility]; Protocol Stop: 12/19/24 07:29 Last Admin: 11/19/24 07:05 Dose: Not Given Levothyroxine Sodium (Levothyroxine Sodium 88 Mcg Tablet) [facility] Stop: 12/20/24 05:59 Nicotine (Nicotine Patch 21 Mg/24 Hr Patch.Td24) 21 mg TOP QDAY [facility] Stop: 12/19/24 08:59 Last Admin: 11/19/24 09:48 Dose: 21 mg Ondansetron HCl (Ondansetron Inj 2 Mg/Ml Inj 2 Ml) 4 mg IVP Q6H PRN; Protocol PRN Reason: NAUSEA OR VOMITING Stop: 12/18/24 22:07 Sennosides (Senna Tablet) 1 tab PO QDAY [facility]; Protocol Stop: 12/19/24 08:59 Last Admin: 11/19/24 09:47 Dose: 1 tab Sodium Chloride (Sodium Chloride Rt Carole 0.9% 3 Ml Nebu) 3 ml INH PRN PRN PRN Reason: SOLN Stop: 12/18/24 21:48 Last Admin: 11/18/24 22:26 Dose: 3 ml Discontinued Medications Albuterol (Albuterol Rt 2.5 Mg/0.5 Ml Nebu) 2.5 mg INH X1 ONE Stop: 11/18/24 21:50 Last Admin: 11/18/24 22:26 Dose: 2.5 mg Furosemide (Furosemide Inj 10 Mg/Ml Vial 2 Ml) 40 mg IVP X1 ONE Stop: 11/18/24 21:50 Last Admin: 11/18/24 22:38 Dose: 40 mg Sodium Bicarbonate 88.23 meq/ (Dextrose) 588.23 mls @ 100 mls/hr IV .Q5H53M [facility] Stop: 12/19/24 11:29 Sodium Bicarbonate 88.23 meq/ (Dextrose) 588.23 mls @ 100 mls/hr IV .Q5H53M FAUSTINA Stop: 11/19/24 10:00 Last Admin: 11/19/24 05:36 Dose: 100 mls/hr Sodium Chloride (Ns) 500 mls @ 999 mls/hr IV .Q31M ONE Stop: 11/18/24 23:12 Last Infusion: 11/19/24 00:27 Dose: Infused Levothyroxine Sodium (Levothyroxine Sodium 100 Mcg Tablet) 100 mcg PO ACBR [facility] Stop: 12/19/24 05:59 Last Admin: 11/19/24 05:36 Dose: 100 mcg Sodium Polystyrene Sulfonate (Sod Polystyrene Sulfon Susp 15 Gm/60 Ml Btl) 30 gm PO X1 ONE Stop: 11/18/24 21:50 Last Admin: 11/18/24 22:44 Dose: 30 gm Assessment & Plan Problem List (1) Acute kidney injury superimposed on CKD: Status: Acute Assessment and plan: Last renal function from 2019 within normal limit, now presented with CATE, ultrasound renal show Bilateral shrunken kidneys with renal cortical thinning and moderate bilateral parenchymal scar formation. Likely CATE on CKD, prerenal etiology. Associated with hyperkalemia, received hyperkalemia cocktail and Kayexalate. Repeat potassium within normal limits. ? Recommended IV bicarb drip initially, noted downtrending creatinine and improvement in EGFR. ? Continue with Bicitra twice daily ? Avoid nephrotoxic drugs ? 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 Recommended IV bicarb drip initially, noted downtrending creatinine and improvement in EGFR. ? Continue with Bicitra twice daily (3) Weakness: Status: Acute Assessment and plan: Likely secondary to the metabolic and electrolyte abnormalities, currently potassium within normal limits. Management per primary team (4) Dementia: Status: Acute Assessment and plan: Management per primary team (5) Diabetes: Status: Acute Assessment and plan: Management per primary team Plan Plan of care discussed with Dr. Juvenal Richard chart [facility] PGY2 Attending Provider Attestation/Addendum Patient seen and examined with resident physician Dr. Aguilar. Note reviewed, agree with findings and recommendations. Patient presented with significant weakness. Daughter is the informant. No nausea, vomiting, diarrhea. Decreased p.o. intake for the last few days. Patient with longstanding diabetes. On Jardiance, Bruno. 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 Gave bicarbonate and monitor closely. Continue with IV fluids. Spoke to primary team.
[2024-11-19] MEDS: CITRIC ACID/SODIUM CITR 15 ML UDC (BICITRA) 30 ML PO ×2 (12:01→20:06)
[2024-11-19] MEDS: INSULIN LISPRO (AdmeLOG) 1 UNIT/0.01 ML UNIT SC (12:02)
[2024-11-19 12:10] LABS: Anion Gap 12 (7-16); BUN/Creatinine Ratio 29 Ratio (12-20); Blood Urea Nitrogen 35 mg/dL (9-23); Calcium 8.7 mg/dL (8.3-10.6); Calcium (Corrected) 8.7 mg/dL (8.5-10.1); Carbon Dioxide 24.1 mMol/L (20.0-31.0); Chloride 103 mMol/L (98-107); Creatinine (Component) 1.2 mg/dL (0.6-1.3); Estimated Creatinine Clearance 30.4 mL/min (>60); Glucose 159 mg/dL (74-106); Osmolality,Calculated 288 (275-295); Potassium 3.6 mMol/L (3.4-5.1); Sodium 139 mMol/L (136-145); eGFR 45 See Note
--- NOTE | 2024-11-19 13:32 | PC.SS ---
Patient Jolene Wade is a 83 Year old female admitted for Weakness. SS met with patient and patient's daughter, Jennifer Lombardo at bedside to discuss discharge plan and verify demographic and contact information. Patient daughter reports patient resides at home with her and she is patient's surrogate decision maker [phone]. Patient utilizes a cane to assist with ambulation. Patient needs minimal assistance completing ADL's. pharmacy of choice is [facility] [place]. PCP is Ijeoma Freeman. At time of discharge family will provide transportation. D/C plan: Home Next of Kin: Daughter, Jennifer Lombardo [phone]
--- NOTE | 2024-11-19 14:16 | PC.RT ---
SS follow up note; Electrolytes being monitored, possible discharge back home tomorrow.
--- NOTE | 2024-11-19 15:30 | ESPR_ITS ---
Documentation for date of: 11/19/24 Subjective Subjective Interval history: Patient examined at bedside. Blood pressure soft 101/60 other vital stable. Metabolic acidosis improving with bicarb 16 after starting bicarb drip. Hyperkalemia improved to 3.7. Dr. Sanford consulted who recommends start Bicitra. Patient is oriented to self, able to recognize simple objects, able to complete simple math. Decrease levo thyroxine from 100 to 88 mcg. Anticipate DC next 24 hours. Exam Vital Signs Temp Pulse Resp BP Pulse Ox O2 Del Method 97.7 F 69 16 111/57 L 98 Room Air 11/19/24 12:00 11/19/24 12:11/19/24 12:11/19/24 12:00 11/19/24 12:11/19/24 12:00 Narrative Exam General: Elderly female, No acute distress, cooperative HEENT: NCAT, No JVD noted. Mucosa dry. Pupils are equal and reactive to light bilaterally Cardiovascular: Normal S1 and S2. Regular rate and rhythm. Respiratory: Lungs are clear to auscultation bilaterally. No wheezing or crackles heard. Abdomen: Soft, nontender, not distended, normal bowel sounds. Skin: Warm to touch, dry, no rashes noted Musculoskeletal: No gross injuries. Able to move all 4 extremities. No pitting edema Neuro: Alert and oriented x1. No focal neuro deficits. Psych: Normal affect and mood Objective Labs 11/19/24 05:07 11/19/24 11:10 Labs: Laboratory Results - last 24 hr 11/18/24 11/18/24 11/19/24 19:39 20:49 05:07 WBC 8.6 7.9 RBC 4.30 4.02 Hgb 12.3 11.6 L Hct 35.9 L 32.5 L MCV 84 81 MCH 28.6 28.9 MCHC 34.3 35.7 RDW Std Deviation 50.5 H 47.4 H Plt Count 292 289 Neut % (Auto) 79 78 Lymph % (Auto) 13 13 [place] % (Auto) 7 7 Eos % (Auto) 0 1 Baso % (Auto) 1 1 Neut # (Auto) 6.8 6.2 Lymph # (Auto) 1.1 1.0 [place] # (Auto) 0.6 0.5 Eos # (Auto) 0.0 0.1 Baso # (Auto) 0.1 0.1 Immature Gran # (Auto) 0.04 H 0.03 H Absolute Nucleated RBC 0.00 0.00 Immature Gran % 1 H 0 Nucleated RBC % 0 0 VBG pH 7.20 L VBG pCO2 35 L VBG pO2 39 VBG O2 Sat (Alexis) 70 L VBG Base Excess -14 L Sodium 137 134 L Potassium 5.6 H 3.7 D Chloride 113 H 104 Carbon Dioxide 13.1 L* 15.9 L Anion Gap 11 14 BUN 45 H 35 H Creatinine 1.6 H 1.4 H Estim Creat Clear Calc 21.4 L 26.1 L eGFR 32 L 38 L BUN/Creatinine Ratio 28 H 25 H Glucose 126 [address] Glu mg/dL 171 H Hemoglobin A1c 7.6 H Calculated Osmolality 287 279 Lactic Acid 1.0 Calcium 9.6 9.5 Corrected Calcium 9.6 9.5 Phosphorus 3.6 Magnesium 2.4 2.0 Total Bilirubin 0.2 L 0.3 AST 18 19 ALT < 7 L < 7 L Alkaline Phosphatase 80 75 Total Creatine Kinase 117 Troponin I < 0.020 B-Natriuretic Peptide 26 Total Protein 7.3 6.8 Albumin 4.5 4.3 Globulin 2.8 2.5 Albumin/Globulin Ratio 1.6 1.7 Procalcitonin 0.07 TSH 0.18 L Free T4 1.69 Ur Collection Type Clean Catch Urine Color Lt-Yellow Urine Clarity Clear Urine pH 6.0 Ur Specific [place] 1.019 Urine Protein 1+ A Urine Glucose (UA) 4+ A Urine Ketones Trace Urine Blood 1+ A Urine Nitrite Negative Urine Bilirubin Negative Urine Urobilinogen (Auto) Negative Ur Leukocyte Esterase Positive Urine RBC 35 H Urine WBC 11 H Ur Squamous Epith Cells 24 H Urine Bacteria None Hyaline Casts < 1 Ur Culture Indicated? Contaminated Ur Random Sodium 66.5 Ur Random Potassium 39 Ur Random Chloride 81.4 11/19/24 11:10 WBC RBC Hgb Hct MCV MCH MCHC RDW Std Deviation Plt Count Neut % (Auto) Lymph % (Auto) [place] % (Auto) Eos % (Auto) Baso % (Auto) Neut # (Auto) Lymph # (Auto) [place] # (Auto) Eos # (Auto) Baso # (Auto) Immature Gran # (Auto) Absolute Nucleated RBC Immature Gran % Nucleated RBC % VBG pH VBG pCO2 VBG pO2 VBG O2 Sat (Alexis) VBG Base Excess Sodium 139 Potassium 3.6 Chloride 103 Carbon Dioxide 24.1 Anion Gap 12 BUN 35 H Creatinine 1.2 Estim Creat Clear Calc 30.4 L eGFR 45 L BUN/Creatinine Ratio 29 H Glucose [address] Glu mg/dL Hemoglobin A1c Calculated Osmolality 288 Lactic Acid Calcium 8.7 Corrected Calcium 8.7 Phosphorus 3.0 Magnesium Total Bilirubin AST ALT Alkaline Phosphatase Total Creatine Kinase Troponin I B-Natriuretic Peptide Total Protein Albumin 4.0 Globulin Albumin/Globulin Ratio Procalcitonin TSH Free T4 Ur Collection Type Urine Color Urine Clarity Urine pH Ur Specific [place] Urine Protein Urine Glucose (UA) Urine Ketones Urine Blood Urine Nitrite Urine Bilirubin Urine Urobilinogen (Auto) Ur Leukocyte Esterase Urine RBC Urine WBC Ur Squamous Epith Cells Urine Bacteria Hyaline Casts Ur Culture Indicated? Ur Random Sodium Ur Random Potassium Ur Random Chloride ABG Interpretation ABG results: 11/18/24 19:39 VBG pH 7.20 L VBG pCO2 35 L VBG pO2 39 VBG Base Excess -14 L Quality Measures Quality Measures none Advance care planning discussed with:: child Assessment & Plan Assessment Current Active Medications: Generic Name Dose Route Start Last Admin Trade Name Freq PRN Reason Stop Dose Admin Acetaminophen 650 mg 11/18/24 22:08 Acetaminophen 325 Mg Tablet PO 12/18/24 22:07 Q6H PRN Fever >99.5 Acetaminophen 1,000 mg 11/18/24 22:08 Acetaminophen 325 Mg Tablet PO 12/18/24 22:07 Q6H PRN PAIN SCALE 1-3 (mild Citric Acid/Sodium Citrate 30 ml 11/19/24 10:00 11/19/24 12:01 Citric Acid/Sodium Citr 15 Ml Udc (Bicitra) PO 12/19/24 09:59 30 ml BID FAUSTINA Administration Dextrose 25 ml 11/18/24 22:08 Dextrose 50%-Water Inj 50 Ml Syringe IV 12/18/24 22:07 Q15MIN PRN BG 50-70 responsive npo pt Dextrose 50 ml 11/18/24 22:08 Dextrose 50%-Water Inj 50 Ml Syringe IV 12/18/24 22:07 Q15MIN PRN BG <50 OR BG <70 & pt unresponsive Docusate Sodium 100 mg 11/19/24 09:00 11/19/24 09:47 Docusate Sod 100 Mg Capsule PO 12/19/24 08:59 100 mg QDAY FAUSTINA Administration Protocol Glucagon 1 mg 11/18/24 22:08 Glucagon Inj 1 Mg Vial IM Q15MIN PRN BG <70, and no IV access Heparin Sodium (Porcine) 5,000 unit 11/19/24 06:00 11/19/24 14:24 Heparin Sod Inj 5000 Unit/Ml Vial SC 12/03/24 05:59 5,000 unit Q8HR FAUSTINA Administration Insulin Human Lispro 0 unit 11/19/24 07:30 11/19/24 12:02 Insulin Lispro (Admelog) 1 Unit/0.01 Ml Unit SC 12/19/24 07:29 1 unit AC FAUSTINA Administration Protocol Levothyroxine Sodium 88 mcg 11/20/24 06:00 Levothyroxine Sodium 88 Mcg Tablet PO 12/20/24 05:59 ACBR FAUSTINA Nicotine 21 mg 11/19/24 09:00 11/19/24 09:48 Nicotine Patch 21 Mg/24 Hr Patch.Td24 TOP 12/19/24 08:59 21 mg QDAY FAUSTINA Administration Ondansetron HCl 4 mg 11/18/24 22:08 Ondansetron Inj 2 Mg/Ml Inj 2 Ml IVP 12/18/24 22:07 Q6H PRN NAUSEA OR VOMITING Protocol Sennosides 1 tab 11/19/24 09:00 11/19/24 09:47 Senna Tablet PO 12/19/24 08:59 1 tab QDAY FAUSTINA Administration Protocol Sodium Chloride 3 ml 11/18/24 21:49 11/18/24 22:26 Sodium Chloride Rt Carole 0.9% 3 Ml Nebu INH 12/18/24 21:48 3 ml PRN PRN Administration SOLN Plan 83-year-old female active smoker with past medical history as stated above who presented to the ED due to generalized weakness. Admitted for acidosis. 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 Initially came in due to weakness. Was found with a bicarb of 13, potassium of 5.[address] Sanford who recommended admission and place the patient on bicarb drip Initially with a bicarb of 13, VBG shows pH of 7.2, patient denies any diarrhea, likely renal losses -Nephrology Dr Sanford consulted -Stop IV bicarb -Start p.o. Bicitra 30 BID ? IVF's -daily CMP #Tobacco use ?Nicotine patch as needed - Counseled patient on smoking cessation #Diabetes mellitus type 2 ? SSI ? Hypoglycemia protocol in place #Hypothyroidism TSH 0.18, free T4 1.69 ? Levothyroxine 100mcg decreased to 88mcg #Hyperkalemia-resolved Health Maintenance: Disposition: Med telemetry Diet: Renal DVT prophylaxis: SCDs Gastric Ulcer prophylaxis: Pantoprazole CODE STATUS: Full code The patient's management plan was discussed with my attending physician Dr. Patel. Kiera Freeman, PGY-1
[2024-11-19] MEDS: ONDANSETRON INJ 2 MG/ML INJ 2 ML 4 MG IVP (23:26)
[2024-11-20] VITALS: BP 96/54; PULSE 69; RESP 17; TEMP 36.1; O2SAT 98
[2024-11-20 04:00] VITALS: BP 100/56; PULSE 65; RESP 17; TEMP 36.1; O2SAT 96
[2024-11-20] MEDS: LEVOTHYROXINE SODIUM 88 MCG TABLET PO (05:30)
[2024-11-20] MEDS: HEPARIN SOD INJ 5000 UNIT/ML VIAL SC ×2 (05:30→13:17)
[2024-11-20 05:59] LABS: Basophils # (Auto) 0.1 Thou/mm3 (0.0-0.2); Basophils % (Auto) 1 % (0-2.5); Eosinophils # (Auto) 0.1 Thou/mm3 (0.0-0.5); Eosinophils % (Auto) 1 % (0-10); Hematocrit 33.9 % (36.0-46.0); Hemoglobin 11.7 g/dL (12.0-16.0); Immature Granulocytes % (Auto) 0 % (0-0); Immature Granulocytes Auto 0.01 Thou/mm3 (0.00-0.00); Lymphocytes # (Auto) 1.1 Thou/mm3 (1.0-4.8); Lymphocytes % (Auto) 18 % (10-50); Mean Corpuscular HGB Conc 34.5 g/dl (31.0-37.0); Mean Corpuscular Hemoglobin 29.1 pg (25.0-35.0); Mean Corpuscular Volume 84 fL (80-100); Monocytes # (Auto) 0.5 Thou/mm3 (0.0-0.8); Monocytes % (Auto) 8 % (0-12); Neutrophils # (Auto) 4.6 Thou/mm3 (1.8-7.7); Neutrophils % (Auto) 72 % (37-80); Nucleated Red Blood Cell % 0 /100 WBC (0); Platelet Count 265 Thou/mm3 (140-440); RDW Standard Deviation 49.2 fL (36.4-46.3); Red Blood Count 4.02 Miln/mm3 (4.00-5.20); White Blood Count 6.4 Thou/mm3 (3.6-11.0)
[2024-11-20 06:22] LABS: Alanine Aminotransferase < 7 U/L (10-49); Albumin/Globulin Ratio 1.7 (1.2-2.2); Alkaline Phosphatase 71 U/L (46-116); Anion Gap 10 (7-16); BUN/Creatinine Ratio 25 Ratio (12-20); Bilirubin,Total 0.3 mg/dL (0.3-1.2); Blood Urea Nitrogen 28 mg/dL (9-23); Calcium 9.6 mg/dL (8.3-10.6); Calcium (Corrected) 9.6 mg/dL (8.5-10.1); Carbon Dioxide 26.8 mMol/L (20.0-31.0); Chloride 100 mMol/L (98-107); Creatinine (Component) 1.1 mg/dL (0.6-1.3); Estimated Creatinine Clearance 33.2 mL/min (>60); Globulin 2.3 gm/dL (2.3-3.5); Glucose 115 mg/dL (74-106); Magnesium 2.2 mg/dL (1.6-2.6); Osmolality,Calculated 280 (275-295); Phosphorous 2.9 mg/dL (2.4-5.1); Potassium 3.5 mMol/L (3.4-5.1); Sodium 137 mMol/L (136-145); Total Protein 6.3 gm/dL (5.7-8.2); eGFR 50 See Note
[2024-11-20 08:00] VITALS: BP 107/62; PULSE 65; RESP 18; TEMP 36.3; O2SAT 96
[2024-11-20 08:03] VITALS: PULSE 83; RESP 18; RESP 98
[2024-11-20] MEDS: DOCUSATE SOD 100 MG CAPSULE PO (08:07)
[2024-11-20] MEDS: NICOTINE PATCH 21 MG/24 HR PATCH.TD24 TOP (08:07)
[2024-11-20] MEDS: SENNA TABLET 1 TAB PO (08:07)
[2024-11-20] MEDS: CITRIC ACID/SODIUM CITR 15 ML UDC (BICITRA) 30 ML PO (08:07)
--- NOTE | 2024-11-20 08:50 | PD.RESPRO ---
Documentation for date of: 11/20/24 Subjective Subjective Interval history: 83-year-old female, Slovak only speaker, patient's granddaughter contributed to H&P. Active smoker with past medical history of dementia, diabetes mellitus, hypothyroidism who presented to the ED with generalized weakness and dizziness and mechanical fall. Per patient's granddaughter, she has a past medical history of dementia, and has been having frequent episodes of forgetfulness, unable to reliably state her symptoms. Patient has been tripping over and falling recently though denied passing out. Denied head injury. Also denied diarrhea or vomiting. Per granddaughter, patient's her oral intake has been poor. At the ED initial vitals showed blood pressure 92/60, heart rate 93, saturating well on room air, CBC showed mild anemia, CHEM panel pertinent for metabolic acidosis, normal anion gap, acute kidney injury, creatinine 1.6. VBG was done which showed findings consistent with metabolic acidosis pH 7.20, pCO2 35 and pO2 39. Nephrology was consulted for acute kidney injury and metabolic acidosis. 11/20/2024 patient evaluated at bedside, sitting up right in chair, family present in the room, patient reported no active symptoms, noted improvement in CATE and acidosis with Bicitra, labs today : sodium 137, potassium 3.5, bicarb 26.8, BUN 28, creatinine 1.1. Discontinue Bicitra. Needs renal panel in 1 week. Bicarbonate markedly improved. Hold off on Bicitra. Exam Vital Signs Temp Pulse Resp BP Pulse Ox O2 Del Method 97.0 F 83 18 100/56 L 96 Room Air 11/20/24 04:00 11/20/24 08:03 11/20/24 08:03 11/20/24 04:00 11/20/24 04:00 11/20/24 04:00 Narrative Exam General: Elderly female, No acute distress, cooperative HEENT: NCAT, No JVD noted. Mucosa dry. Pupils are equal and reactive to light bilaterally Cardiovascular: Normal S1 and S2. Regular rate and rhythm. Respiratory: Lungs are clear to auscultation bilaterally. No wheezing or crackles heard. Abdomen: Soft, nontender, not distended, normal bowel sounds. Skin: Warm to touch, dry, no rashes noted Musculoskeletal: No gross injuries. Able to move all 4 extremities. No pitting edema Neuro: Alert and oriented x1. No focal neuro deficits. Psych: Normal affect and mood Objective Labs 11/20/24 04:47 11/20/24 04:47 Labs: Laboratory Results - last 24 hr 11/19/24 11/20/24 11:10 04:47 WBC 6.4 RBC 4.02 Hgb 11.7 L Hct 33.9 L MCV 84 MCH 29.1 MCHC 34.5 RDW Std Deviation 49.2 H Plt Count 265 Neut % (Auto) 72 Lymph % (Auto) 18 [place] % (Auto) 8 Eos % (Auto) 1 Baso % (Auto) 1 Neut # (Auto) 4.6 Lymph # (Auto) 1.1 [place] # (Auto) 0.5 Eos # (Auto) 0.1 Baso # (Auto) 0.1 Immature Gran # (Auto) 0.01 H Absolute Nucleated RBC 0.00 Immature Gran % 0 Nucleated RBC % 0 Sodium 139 137 Potassium 3.6 3.5 Chloride 103 100 Carbon Dioxide 24.1 26.8 Anion Gap 12 10 BUN 35 H 28 H Creatinine 1.2 1.1 Estim Creat Clear Calc 30.4 L 33.2 L eGFR 45 L 50 L BUN/Creatinine Ratio 29 H 25 H Glucose 159 H 115 H Calculated Osmolality 288 280 Calcium 8.7 9.6 Corrected Calcium 8.7 9.6 Phosphorus 3.0 2.9 Magnesium 2.2 Total Bilirubin 0.3 ALT < 7 L Alkaline Phosphatase 71 Total Protein 6.3 Albumin 4.0 4.0 Globulin 2.3 Albumin/Globulin Ratio 1.7 ABG Interpretation ABG results: 11/18/24 19:39 VBG pH 7.20 L VBG pCO2 35 L VBG pO2 39 VBG Base Excess -14 L Quality Measures Quality Measures none Advance care planning discussed with:: patient Assessment & Plan Assessment Current Active Medications: Generic Name Dose Route Start Last Admin Trade Name Freq PRN Reason Stop Dose Admin Acetaminophen 650 mg 11/18/24 22:08 Acetaminophen 325 Mg Tablet PO 12/18/24 22:07 Q6H PRN Fever >99.5 Acetaminophen 1,000 mg 11/18/24 22:08 Acetaminophen 325 Mg Tablet PO 12/18/24 22:07 Q6H PRN PAIN SCALE 1-3 (mild Citric Acid/Sodium Citrate 30 ml 11/19/24 10:00 11/20/24 08:07 Citric Acid/Sodium Citr 15 Ml Udc (Bicitra) PO 12/19/24 09:59 30 ml BID FAUSTINA Administration Dextrose 25 ml 11/18/24 22:08 Dextrose 50%-Water Inj 50 Ml Syringe IV 12/18/24 22:07 Q15MIN PRN BG 50-70 responsive npo pt Dextrose 50 ml 11/18/24 22:08 Dextrose 50%-Water Inj 50 Ml Syringe IV 12/18/24 22:07 Q15MIN PRN BG <50 OR BG <70 & pt unresponsive Docusate Sodium 100 mg 11/19/24 09:00 11/20/24 08:07 Docusate Sod 100 Mg Capsule PO 12/19/24 08:59 100 mg QDAY FAUSTINA Administration Protocol Glucagon 1 mg 11/18/24 22:08 Glucagon Inj 1 Mg Vial IM Q15MIN PRN BG <70, and no IV access Heparin Sodium (Porcine) 5,000 unit 11/19/24 06:00 11/20/24 05:30 Heparin Sod Inj 5000 Unit/Ml Vial SC 12/03/24 05:59 5,000 unit Q8HR FAUSTINA Administration Insulin Human Lispro 0 unit 11/19/24 07:30 11/20/24 07:45 Insulin Lispro (Admelog) 1 Unit/0.01 Ml Unit SC 12/19/24 07:29 Not Given AC FAUSTINA Protocol Levothyroxine Sodium 88 mcg 11/20/24 06:00 11/20/24 05:30 Levothyroxine Sodium 88 Mcg Tablet PO 12/20/24 05:59 88 mcg ACBR FAUSTINA Administration Nicotine 21 mg 11/19/24 09:00 11/20/24 08:07 Nicotine Patch 21 Mg/24 Hr Patch.Td24 TOP 12/19/24 08:59 21 mg QDAY FAUSTINA Administration Ondansetron HCl 4 mg 11/18/24 22:08 11/19/24 23:26 Ondansetron Inj 2 Mg/Ml Inj 2 Ml IVP 12/18/24 22:07 4 mg Q6H PRN Administration NAUSEA OR VOMITING Protocol Sennosides 1 tab 11/19/24 09:00 11/20/24 08:07 Senna Tablet PO 12/19/24 08:59 1 tab QDAY FAUSTINA Administration Protocol Sodium Chloride 3 ml 11/18/24 21:49 11/18/24 22:26 Sodium Chloride Rt Carole 0.9% 3 Ml Nebu INH 12/18/24 21:48 3 ml PRN PRN Administration SOLN Plan (1) Acute kidney injury superimposed on CKD: Status: Acute Assessment and plan: Last renal function from 2019 within normal limit, now presented with CATE, ultrasound renal show Bilateral shrunken kidneys with renal cortical thinning and moderate bilateral parenchymal scar formation. Likely CATE on CKD, prerenal etiology. Associated with hyperkalemia, received hyperkalemia cocktail and Kayexalate. Repeat potassium within normal limits. ? Recommended IV bicarb drip initially, noted downtrending creatinine and improvement in EGFR. ? Discontinue Bicitra, patient can be discharged on bicarb tablets twice daily ? Avoid nephrotoxic drugs ? Monitor for volume overload (2) Metabolic acidosis with normal anion gap and bicarbonate losses: Status: Acute Assessment and plan: Normal anion gap metabolic acidosis, the patient denied diarrhea, possible RTA complicating bicarbonate loss ? Recommended IV bicarb drip initially, noted downtrending creatinine and improvement in EGFR. ? Discontinue Bicitra, patient can be discharged on bicarb tablets twice daily (3) Weakness: Status: Acute Assessment and plan: Likely secondary to the metabolic and electrolyte abnormalities, currently potassium within normal limits. Management per primary team (4) Dementia: Status: Acute Assessment and plan: Management per primary team (5) Diabetes: Status: Acute Assessment and plan: Management per primary team Plan Plan of care discussed with Dr. Juvenal Richard [facility] PGY2 Attending Provider Attestation/Addendum Patient seen and examined with resident physician Dr. Aguilar. Note reviewed, agree with findings and recommendations. Patient presented with significant weakness. Daughter is the informant. No nausea, vomiting, diarrhea. Decreased p.o. intake for the last few days. Patient with longstanding diabetes. On Deshaun, Bruno. 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 Gave bicarbonate and monitor closely. Continue with IV fluids. 11/20/2024 bicarbonate markedly improved. Renal murrell stable for discharge. Renal panel in 1 week. Follow-up with PCP. Spoke to primary team.
[2024-11-20 09:00] VITALS: O2SAT 96
--- NOTE | 2024-11-20 09:06 | ESDS_ITS ---
<Statement entered by Bruce Núñez MD - 11/20/24 14:03> I Bruce Núñez MD reviewed the note and agree with the resident's assessment & plan with exceptions as below. I have personally reviewed labs, imaging, home meds/prior records, examined the patient, formulated and discussed management plan with the IM team. Planned Discharge Date 11/20/24 DS: Providers Provider Date of admission: 11/18/24 22:08 Primary care physician: Ijeoma Freeman MD Admitting Provider: Gerry Mejia MD Attending Provider on Admission: Miesha Patel MD Consults: 11/18/24 21:41 Consult to Nephrology Stat Comment: Consulting Provider: Jorge Luis Sanford Attending Provider on DC: Clarisse Melvin MD Discharging Provider: Clarisse Melvin MD DS: Diagnosis Problem List Completed Was Problem List Reviewed/Reconciled?: Yes Hospital Course Hospital Course Hospital course: 83-year-old equatorial guinean speaking female active smoker with past medical history of dementia, diabetes mellitus, hypothyroidism who presented to the ED with generalized weakness and dizziness and mechanical fall . Per patient's granddaughter, she has a past medical history of dementia, and has been having frequent episodes of forgetfulness, unable to reliably state her symptoms. Patient has been tripping over and falling recently though denied passing out. Denied head injury. but she was having poor oral intake. At the ED initial vitals showed blood pressure 92/60, heart rate 93, saturating well on room air, CBC showed mild anemia, Chem panel pertinent for metabolic acidosis, normal anion gap, acute kidney injury, creatinine 1.6. VBG was done which showed findings consistent with metabolic acidosis pH 7.20, pCO2 35 and pO2 39. Nephrology was consulted for acute kidney injury and metabolic acidosis. she was started on Bicarb drip. Unknown anion gap metabolic acidosis was most likely secondary to RTA type IV as patient initially presented with hyperkalemia and also has history of diabetes. Patient improved on bicarb drip and was changed into oral Bicitra. Today her vitals are stable, non-anion gap metabolic acidosis resolved. Creatinine back to her baseline. On further lab her TSH came back 0.18 and free T41.69 Her levothyroxine dose was decreased from 100 mcg to 88 mcg follow-up TSH in 6 weeks. She is stable to discharge back home follow-up within 1 week to PCP with renal panel. Continue previous medications. We decreased you levothyroxine dose from 100mcg to 88mcg. Follow up with your PCP to recheck thyroid levels in 6 weeks for medication adjustment. 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 Levothyroxine 100mcg decreased to 88mcg follow up Out patient #Hyperkalemia-resolved Case discussed with my attending Dr. Wilton Melvin MD, PGY-3 Time Spent with Patient Time attestation: Total time spent providing and/or coordinating discharge services:> 30 min Time spent: Greater than 30 minutes Exam Vital Signs Temp Pulse Resp BP Pulse Ox O2 Del Method 97.0 F 83 18 100/56 L 96 Room Air 11/20/24 04:00 11/20/24 08:03 11/20/24 08:03 11/20/24 04:00 11/20/24 04:00 11/20/24 04:00 Discharge Plan Plan Patient Disposition: HOME (Self Care) Prescriptions/Referrals Prescriptions/Med Rec: New levothyroxine 88 mcg Tablet 88 mcg PO ACBR 30 Days Qty: 30 0RF Continued atorvastatin 10 mg tablet 10 mg PO DAILY Patient Comments: TAKE 1 TABLET BY MOUTH EVERY DAY Janumet XR 100-1,000 mg tablet, ER multiphase 24 hr 1 tab PO DAILY Patient Comments: TAKE 1 TABLET BY MOUTH EVERY DAY WITH EVENING MEAL. SWALLOW WHOLE DO NOT CRUSH, CHEW, AND/OR DIVIDE Jardiance 25 mg tablet 25 mg PO DAILY Patient Comments: TAKE 1 TABLET BY MOUTH EVERY MORNING Rybelsus 3 mg tablet 3 mg PO .bedtime Patient Comments: PLEASE SEE ATTACHED FOR DETAILED DIRECTIONS Discontinued levothyroxine 88 mcg tablet 88 mcg PO DAILY Patient Comments: TAKE 1 TABLET BY MOUTH EVERY DAY Referrals: Ijeoma Freeman MD [Primary Care Provider] - Patient/Caregiver Discharge Instructions Other Discharge Activity Instructions:: Continue previous medications. We decreased you levothyroxine dose from 100mcg to 88mcg. Follow up with your PCP to recheck thyroid levels in 6 weeks for medication adjustment. Do CMP in 1 week and Follow up with PCP in 1 weeks to see renal function Education Materials: Acute Kidney Failure Dc Print Language: Swedish Stand Alone Forms: Maribell Award Info., Patient Portal Info Letter Discharge Order Discharge Orders: Discharge (Routine); Ordered 11/20/24 Ordered By: Clarisse Melvin Quality Discharge Quality Measures VTE prophylaxis
[2024-11-20 12:00] VITALS: BP 108/62; PULSE 96; RESP 17; TEMP 36.3; O2SAT 95
[2024-11-20] MEDS: SODIUM BICARBONATE 650 MG TABLET PO (13:18)
--- NOTE | 2024-11-20 14:40 | PC.NURSE ---
Wyatt Rodriguez (daughter) at bedside to miner pick pt. Notified MD Gage no further discharge instructions to be added per md cont with discharge.
== END 2024-11-20 14:55 | disposition home or self-care (01) | DRG 683 ==
LOC: SERX 19:30 → SERHOLD 23:01 → S3NX 11-19 01:42
PROVIDERS: Physician Assistant; Student in an Organized Health Care Education/Training Program; Admitting Provider Student in an Organized Health Care Education/Training Program; Emergency Provider Emergency Medicine; PCP Internal Medicine; Visit Provider Internal Medicine
DX: N17.9 Acute kidney failure, unspecified (principal); E87.20 Acidosis, unspecified; R18.8 Other ascites; N18.32 Chronic kidney disease, stage 3b; I12.9 Hypertensive chronic kidney disease with stage 1 through stage 4 chronic kidney disease, or unspecified chronic kidney disease; F03.90 Unspecified dementia, unspecified severity, without behavioral disturbance, psychotic disturbance, mood disturbance, and anxiety; F17.210 Nicotine dependence, cigarettes, uncomplicated; E87.5 Hyperkalemia; E03.9 Hypothyroidism, unspecified; E11.22 Type 2 diabetes mellitus with diabetic chronic kidney disease; N25.89 Other disorders resulting from impaired renal tubular function; S80.212A Abrasion, left knee, initial encounter; W01.0XXA Fall on same level from slipping, tripping and stumbling without subsequent striking against object, initial encounter; Z79.84 Long term (current) use of oral hypoglycemic drugs; Z79.890 Hormone replacement therapy
CPT/HCPCS: 36415; 70450; 71045; 71250; 72125; 74176; 76770; 80053; 80069; 81001; 82436; 82550; 82803; 83036; 83605; 83735; 83880; 84100; 84133; 84145; 84300; 84439; 84443; 84484; 85025; 93005; 94640; 96361; 96374; 99285; J1644; J1815; J1938; J2405; J7040; J7060; A9270

== ENCOUNTER 2024-12-08 19:44 | Emergency (ER) | payer MEDICARE, MEDICAID, SELFPAY ==
[2024-12-08 19:46] VITALS: BMI 28.5
[2024-12-08 20:15] VITALS: BP 108/76; PULSE 95; RESP 18; TEMP 36.8; O2SAT 95
--- NOTE | 2024-12-08 20:34 | PD.EDRME ---
Rapid Medical Screening Exam RME Arrival date/time: 12/08/24 19:44 Chief Complaint: General Adult/Misc Complain Vital signs: Vital Signs Temperature 98.3 F 12/08/24 20:15 Pulse Rate 95 12/08/24 20:15 Respiratory Rate 18 12/08/24 20:15 Blood Pressure 108/76 12/08/24 20:15 Pulse Oximetry (%) 95 12/08/24 20:15 Oxygen Delivery Method Room Air 12/08/24 20:15 Pulse ox is 95% room air Vital signs reviewed by provider: Yes RME Narrative: 83-year-old female presents to the ED with a complaint of decreased appetite x 3 days. Family member tells me patient does not want to eat and does not want to consume liquids. Patient complains of abdominal pain. Past medical history includes dehydration for which she was admitted to the hospital on November 18.
--- NOTE | 2024-12-08 20:36 | EKG_ITS ---
[facility] Test Date: 2024-12-08 Pat Name: AIMEE WEST Department: Room: - Gender: Female Information Services Consultant: : 1940 Requested By: Torrey Roque Order Number: [id number] Reading MD: Torrey Roque Measurements Intervals [place] Rate: 101 P: 47 [place]: 121 QRS: -57 QRSD: 114 T: 67 QT: 335 QTc: 435 Interpretive Statements SINUS TACHYCARDIA LEFT AXIS DEVIATION [QRS AXIS < -30] MINIMAL VOLTAGE CRITERIA FOR LVH, CONSIDER NORMAL VARIANT [MEETS CRITERIA IN ONE OF: R(aVL), S(V1), R(V5), R(V5/V6)+S(V1)] POSSIBLE ANTERIOR MYOCARDIAL INFARCTION , OF INDETERMINATE AGE [30 ms Q WAVE IN V3/V4, OR R < 0.2 mV IN V4] Compared to ECG 08/12/2018 11:26:45 Myocardial infarct finding now present Sinus rhythm no longer present Intraventricular conduction delay no longer present /store/S0/[id number]/ecg/[id number].pdf
--- NOTE | 2024-12-08 20:36 | XR_ITS ---
Examination: AP lateral chest 2 views. TECHNIQUE: Cine AP lateral chest 2 views. Date and time: December 08, 2024, 2050 hours. INDICATIONS: Dehydration and loss of appetite chest pain today. FINDINGS: Suspicious for early pneumonia in the left midlung Normal heart size Right lung clear. Prominent osteopenia IMPRESSION: Suspicious for early left lung pneumonia
[2024-12-08 21:14] LABS: Basophils % (Auto) 0 % (0-2.5); Eosinophils # (Auto) 0.1 Thou/mm3 (0.0-0.5); Eosinophils % (Auto) 1 % (0-10); Hemoglobin 13.5 g/dL (12.0-16.0); Immature Granulocytes % (Auto) 1 % (0-0); Immature Granulocytes Auto 0.09 Thou/mm3 (0.00-0.00); Lymphocytes % (Auto) 11 % (10-50); Mean Corpuscular HGB Conc 34.6 g/dl (31.0-37.0); Mean Corpuscular Hemoglobin 28.2 pg (25.0-35.0); Mean Corpuscular Volume 81 fL (80-100); Monocytes # (Auto) 0.7 Thou/mm3 (0.0-0.8); Monocytes % (Auto) 7 % (0-12); Neutrophils # (Auto) 7.2 Thou/mm3 (1.8-7.7); Neutrophils % (Auto) 79 % (37-80); Nucleated Red Blood Cell % 0 /100 WBC (0); Platelet Count 424 Thou/mm3 (140-440); RDW Standard Deviation 47.9 fL (36.4-46.3); Red Blood Count 4.79 Miln/mm3 (4.00-5.20)
[2024-12-08 21:37] LABS: INR 1.1 (0.9-1.3); Partial Thromboplastin Time 28.8 Seconds (22.0-36.0); Prothrombin Time 12.2 Seconds (9.0-12.2)
[2024-12-08 21:41] LABS: B-Type Natriuretic Peptide 45 pg/mL (0-100)
[2024-12-08 21:58] LABS: Albumin, Serum 4.1 gm/dL (3.4-4.8); Albumin/Globulin Ratio 1.4 (1.2-2.2); Alkaline Phosphatase 74 U/L (46-116); Anion Gap 10 (7-16); Aspartate Amino Transferase 22 U/L (0-34); BUN/Creatinine Ratio 15 Ratio (12-20); Bilirubin,Total 0.3 mg/dL (0.3-1.2); Blood Urea Nitrogen 20 mg/dL (9-23); Calcium 9.5 mg/dL (8.3-10.6); Calcium (Corrected) 9.5 mg/dL (8.5-10.1); Carbon Dioxide 25.4 mMol/L (20.0-31.0); Chloride 97 mMol/L (98-107); Creatinine (Component) 1.3 mg/dL (0.6-1.3); Estimated Creatinine Clearance 24.8 mL/min (>60); Globulin 2.9 gm/dL (2.3-3.5); Glucose 160 mg/dL (74-106); LDH (Lactate Dehydrogenase) 244 U/L (120-246); Magnesium 2.2 mg/dL (1.6-2.6); Osmolality,Calculated 270 (275-295); Potassium 3.7 mMol/L (3.4-5.1); Sodium 132 mMol/L (136-145); Troponin I < 0.020 ng/mL (0.0-0.045); eGFR 41 See Note
[2024-12-08 22:09] LABS: Alanine Aminotransferase 7 U/L (10-49)
[2024-12-08 22:49] VITALS: BP 111/72; PULSE 86; RESP 22; O2SAT 96
--- NOTE | 2024-12-08 22:55 | PC.NURSE ---
ASSUMED CARE OF PATIENT, PT ALERT AND IN NO ACUTE DISTRESS, GRANDDAUGHTER AT BEDSIDE AND STATES THAT SHE WAS HERE ABOUT 5 DAYS AGO FOR DEHYDRATION AND PATIENT HASN'T REALLY ATE OR DRANK IN THE PAST 3 DAYS SO FAMILY GOT CONCERNED AND BROUGHT HER IN TO THE ER. PT HX OF DEMENTIA SO IS FORGETFUL AT TIMES. ATTEMPTED TO HAVE PATIENT URINATE BUT UNSUCCESSFUL. WILL CONTINUE WITH PLAN OF CARE, ER MD AT BEDSIDE
--- NOTE | 2024-12-08 23:10 | PD.EDADULT ---
ED General RME/HPI General Chief complaint: General Adult/Misc Complain Stated complaint: NOT EATING OR DRINKING Arrival date/time: 12/08/24 19:44 RME / HPI RME / HPI narrative: 83-year-old female presents to the ED with a complaint of decreased appetite x 3 days. Family member tells me patient does not want to eat and does not want to consume liquids. Patient complains of abdominal pain. Past medical history includes dehydration for which she was admitted to the hospital on November 18. DR GATICA MAIN ED EVALUATION: 83 y/o female with Hx of Dementia and Type I DM BIB granddaughter presents to ED c/o loss of appetite and decreased fluid intake x 3 days. Patient was seen in ED for dehydration on 11/18/2024. Granddaughter is concerned patient may be dehydrated again. She believes the new onset Dementia may be affecting patient's appetite as patient will chew food and spit it out stating that she is not hungry even when offered her favorite foods. Patient's family has moved her out of her home and into her daughter's home as the dementia progresses. Patient wants to go back home. Patient denies pain or any other associated symptoms or aggravating factors. No modifying factors, no radiation, no migration. No pain reported overall. No other concerns or complaints expressed at this time. Related Data Home Medications ?Medication ?Instructions ?Recorded ?Confirmed atorvastatin 10 mg tablet 10 mg PO DAILY 11/19/24 11/19/24 empagliflozin 25 mg tablet 25 mg PO DAILY 11/19/24 11/19/24 (Jardiance) semaglutide 3 mg tablet (Rybelsus) 3 mg PO .bedtime 11/19/24 11/19/24 sitagliptin phos 100 mg-metformin 1 tab PO DAILY 11/19/24 11/19/24 ER 1,000 mg tablet,extend rel 24h mp (Janumet XR) Previous Rx's ?Medication ?Instructions ?Recorded levothyroxine 88 mcg tablet 88 mcg PO ACBR 30 days #30 tabs 11/19/24 Allergies Allergy/AdvReac Type Severity Reaction Status Date / Time No Known Allergies Allergy Verified 12/08/24 19:50 Review of Systems Review of Systems Systems Reviewed: All systems reviewed, normal except as documented Past Medical History Past Medical History NEUROLOGIC: Positive Dementia CARDIAC: Positive Hypercholesterolemia and Hypertension ENDOCRINE: Positive Diabetes Mellitus Type 1 OTHER HISTORY: Positive Hospitalization and Falls Surgical History SURGICAL: Positive Abdominal Surgery and Joint Replacement Social History SMOKING STATUS: Current every day smoker ED Exam Narrative Physical exam: GENERAL APPEARANCE: alert and oriented x 4, well-developed, well-nourished, no acute distress VITALS: All vitals were reviewed and the pulse ox is 96% on room air, which is normal according to my interpretation. HEENT: Normocephalic, atraumatic; pupils equal, round, reactive to light; EOMI; mucous membranes pink, moist; oropharynx clear NECK: Supple LUNGS: CTABL; no wheezes, no rales, no rhonchi HEART: Regular rate, regular rhythm; normal S1, S2; no murmurs ABDOMEN: non distended; normal BS; soft, no tenderness, no guarding, no rebound; no masses, no organomegaly, no hernia BACK: no CVA tenderness EXTREMITIES: atraumatic; no edema NEUROLOGIC: awake; alert and oriented x4; cranial nerves II-XII grossly intact; no focal sensory or motor deficits PSYCHIATRIC: appropriate mood and affect SKIN: warm, dry, normal color; no rashes Course Course Course Narrative: CXR is ordered for determining the etiology of shortness of breath. Quality Measures none Orders Category Date Time Status EKG (ED ONLY) *Do not use* NOW Care 12/08/24 20:36 Completed EKG (ED Only) Stat Exams 12/08/24 20:36 Draft XR chest 2V Stat Exams 12/08/24 20:36 Completed B-Type Natriuretic Peptide Stat Lab 12/08/24 20:54 Completed CBC Stat Lab 12/08/24 20:54 Completed Comprehensive Metabolic Panel Stat Lab 12/08/24 20:54 Completed LDH (Lactate Dehydrogenase) Stat Lab 12/08/24 20:54 Completed Magnesium Stat Lab 12/08/24 20:54 Completed Partial Thromboplastin Time Stat Lab 12/08/24 20:54 Completed Prothrombin Time with INR Stat Lab 12/08/24 20:54 Completed Troponin I Stat Lab 12/08/24 20:54 Completed Vital Signs Vital signs: Vital Signs Temperature 98.3 F 12/08/24 20:15 Pulse Rate 95 12/08/24 20:15 Respiratory Rate 18 12/08/24 20:15 Blood Pressure 108/76 12/08/24 20:15 Pulse Oximetry (%) 95 12/08/24 20:15 Oxygen Delivery Method Room Air 12/08/24 20:15 Discharge Plan Plan Patient Disposition: HOME (Self Care) Prescriptions/Referrals Prescriptions/Med Rec: No Action atorvastatin 10 mg tablet 10 mg PO DAILY Patient Comments: TAKE 1 TABLET BY MOUTH EVERY DAY Janumet XR 100-1,000 mg tablet, ER multiphase 24 hr 1 tab PO DAILY Patient Comments: TAKE 1 TABLET BY MOUTH EVERY DAY WITH EVENING MEAL. SWALLOW WHOLE DO NOT CRUSH, CHEW, AND/OR DIVIDE Jardiance 25 mg tablet 25 mg PO DAILY Patient Comments: TAKE 1 TABLET BY MOUTH EVERY MORNING Rybelsus 3 mg tablet 3 mg PO .bedtime Patient Comments: PLEASE SEE ATTACHED FOR DETAILED DIRECTIONS levothyroxine 88 mcg Tablet 88 mcg PO ACBR 30 Days Qty: 30 0RF Referrals: Ijeoma Freeman MD [Primary Care Provider] - In 1 week Problem List Clinical Impression: Decreased appetite Patient/Caregiver Discharge Instructions Education Materials: Dementia Communicate Patients Print Language: Chadian Stand Alone Forms: Maribell Award Info., Patient Portal Info Letter MDM Narrative [facility] hospital course: Scribe Attestation: Radha Ratliff, am scribing for and in the presence of Dr. Gatica. Provider Notation: Although this document has been carefully reviewed, there may still be some phonetic and other typographical errors. These errors are purely grammatical due to imperfections in the software program and should not be construed in any way to compromise the substance of the patient's medical care during this visit. Clinical Information Provided by family (Granddaughter) Medical Records Reviewed [facility] Reviewed prior ED records form 11/18/24. Patient was seen for weakness. Meds/Rx Considered, not Ordered None Labs/Rad/Tests considered, not Ordered None Chronic Illness/Social Conditions which may negatively complicate care or outcome(s)-explain: other (Dementia) EKG EKG Interpretation narrative: EKG manual reading, my interpretation: sinus tachycardia, 101 bmp, Q-wave in V3, V4, V6, no acute ischemic changes. Lab Interpretation Labs: interpreted by me and see narrative above Imaging Imaging interpretation: interpreted by me and see narrative above Radiology reports / interpretation(s): Patient: AIMEE WEST [facility]. Record#: [id number] Birthdate: 1940 Age/Sex: 83 / F [facility] Dr: Ordering Physician: Torrey Cash PA-C Date of Service: 12/08/24 Procedure(s): XR chest 2V Accession Number(s): [id number] cc: Ijeoma Freeman MD; Hussain Alicea MD; Torrey Cash PA-C~ Examination: AP lateral chest 2 views. TECHNIQUE: Cine AP lateral chest 2 views. Date and time: December 08, 2024, 2050 hours. INDICATIONS: Dehydration and loss of appetite chest pain today. FINDINGS: Suspicious for early pneumonia in the left midlung Normal heart size Right lung clear. Prominent osteopenia IMPRESSION: Suspicious for early left lung pneumonia Dictated By: Hussain Alicea MD Signed By: <Electronically signed by Hussain Alicea MD in OV> 12/08/24 2200 Medication Administration(s) See above if any. Diagnosis Differential diagnosis: Atypical anorexia nervosa, Subthreshold bulimia nervosa, Dehydration. Most likely dx, and/or detailed dx discussion: Decreased appetite Dispositon Disposition: Discharge Home
== END 2024-12-08 23:13 | disposition home or self-care (01) ==
PROVIDERS: Physician Assistant; Emergency Provider Emergency Medicine; PCP Internal Medicine
DX: R63.0 Anorexia (principal); E86.0 Dehydration; R07.9 Chest pain, unspecified; R06.02 Shortness of breath; R00.0 Tachycardia, unspecified; I10 Essential (primary) hypertension; E78.00 Pure hypercholesterolemia, unspecified; F17.210 Nicotine dependence, cigarettes, uncomplicated
CPT/HCPCS: 36415; 71046; 80053; 80307; 81001; 83615; 83735; 83880; 84484; 85025; 85610; 85730; 93005; 99283

== ENCOUNTER 2024-12-19 23:44 | Inpatient (IN) | payer MEDICARE, MEDICAID, SELFPAY ==
[2024-12-19 23:48] VITALS: BMI 25.4
[2024-12-19 23:55] VITALS: BP 102/73; RESP 20; TEMP 36.9; O2SAT 93
[2024-12-20] VITALS (8 sets, daily range): BP systolic 97–119; BP diastolic 73–80; PULSE 79–103; RESP 16–18; TEMP 36.1–36.7; O2SAT 91–98; BMI 24.9
--- NOTE | 2024-12-20 00:26 | PD.EDADULT ---
ED General RME/HPI General Chief complaint: GI Bleed Stated complaint: VOMITING COFFEE GROUND APPEARING VOMIT Time Seen by Provider: 12/20/24 00:11 Arrival date/time: 12/19/24 23:44 Related Data Home Medications ?Medication ?Instructions ?Recorded ?Confirmed atorvastatin 10 mg tablet 10 mg PO DAILY 11/19/24 11/19/24 empagliflozin 25 mg tablet 25 mg PO DAILY 11/19/24 11/19/24 (Jardiance) semaglutide 3 mg tablet (Rybelsus) 3 mg PO .bedtime 11/19/24 11/19/24 sitagliptin phos 100 mg-metformin 1 tab PO DAILY 11/19/24 11/19/24 ER 1,000 mg tablet,extend rel 24h mp (Janumet XR) Allergies Allergy/AdvReac Type Severity Reaction Status Date / Time No Known Allergies Allergy Verified 12/19/24 23:52 Course Quality Measures none Orders Category Date Time Status [employer] Q4H START 00 Care 12/20/24 00:22 Active Continuous Pulse Oximetry STAT Care 12/20/24 00:23 Completed IV [Insert IV] NOW Care 12/20/24 02:03 Completed NPO STAT Care 12/20/24 00:23 Active Amylase Stat Lab 12/20/24 01:40 Completed CBC Stat Lab 12/20/24 01:40 Completed CMP [Comprehensive Metabolic Panel] Stat Lab 12/20/24 01:40 Completed Lipase Stat Lab 12/20/24 01:40 Completed Magnesium Stat Lab 12/20/24 01:40 Completed Troponin I Stat Lab 12/20/24 01:40 Completed Urinalysis Stat Lab 12/20/24 00:24 Ordered Pantoprazole Inj [Protonix Inj] Med 12/20/24 00:22 Discontinued 40 mg IVP X1 ONE Sodium Chloride 0.9% 1000 ml [Ns] 1,000 ml Med 12/20/24 00:22 Discontinued IV 999 mls/hr Vital Signs Vital signs: Vital Signs Temperature 98.5 F 12/19/24 23:55 Respiratory Rate 20 12/19/24 23:55 Blood Pressure 102/73 12/19/24 23:55 Pulse Oximetry (%) 93 L 12/19/24 23:55 Oxygen Delivery Method Room Air 12/19/24 23:55 Discharge Plan Plan Patient Disposition: Admit Acute Care w/in Hospital Prescriptions/Referrals Prescriptions/Med Rec: No Action atorvastatin 10 mg tablet 10 mg PO DAILY Patient Comments: TAKE 1 TABLET BY MOUTH EVERY DAY Janumet XR 100-1,000 mg tablet, ER multiphase 24 hr 1 tab PO DAILY Patient Comments: TAKE 1 TABLET BY MOUTH EVERY DAY WITH EVENING MEAL. SWALLOW WHOLE DO NOT CRUSH, CHEW, AND/OR DIVIDE Jardiance 25 mg tablet 25 mg PO DAILY Patient Comments: TAKE 1 TABLET BY MOUTH EVERY MORNING Rybelsus 3 mg tablet 3 mg PO .bedtime Patient Comments: PLEASE SEE ATTACHED FOR DETAILED DIRECTIONS Referrals: No Primary/Family,Physician [Primary Care Provider] - In 1 week Problem List Clinical Impression: Weakness, Acute kidney injury superimposed on CKD, Coffee ground emesis Patient/Caregiver Discharge Instructions Print Language: Mauritian Stand Alone Forms: Maribell Award Info., Patient Portal Info Letter MDM Narrative MDM hospital course: 83-year-old female active smoker with past medical history of dementia, diabetes mellitus, hypothyroidism who presented to the ED with generalized weakness and coffee ground emesisx2. Patient brought a t shirt with coffee ground emesis. She also endorses LLQ abdominal pain onset today. She denies fever, chills, shortness of breath, chest pain, palpitations, recent travel, sick contacts. 0235: FOBT +, CBC unremarkable, CMP shows CATE, hyponatremia, hypermagnesemia 0236: Spoke to Dr. Palomares who recommended PPI BID or drip and to keep NPO for tomorrow 0240: Spoke to IM team who will accept the patient. Clinical Information Provided by patient and family Medical Records Reviewed [facility] Chronic Illness/Social Conditions which may negatively complicate care or outcome(s)-explain: None or not applicable Medication Administration(s) Medication Administration History Discontinued Medications Sodium Chloride (Ns) 1,000 mls @ 999 mls/hr IV .Q1H1M ONE Stop: 12/20/24 01:22 Last Admin: 12/20/24 02:01 Dose: 999 mls/hr Documented By: TODD Pantoprazole Sodium (Pantoprazole Inj 40 Mg Vial) 40 mg IVP X1 ONE Stop: 12/20/24 00:23 Last Admin: 12/20/24 02:02 Dose: 40 mg Documented By: TODD Diagnosis Differential diagnosis: colitis
[2024-12-20 01:53] LABS: Basophils # (Auto) 0.0 Thou/mm3 (0.0-0.2); Basophils % (Auto) 0 % (0-2.5); Eosinophils # (Auto) 0.0 Thou/mm3 (0.0-0.5); Eosinophils % (Auto) 0 % (0-10); Hematocrit 41.9 % (36.0-46.0); Hemoglobin 14.2 g/dL (12.0-16.0); Immature Granulocytes Auto 0.09 Thou/mm3 (0.00-0.00); Lymphocytes # (Auto) 0.7 Thou/mm3 (1.0-4.8); Lymphocytes % (Auto) 7 % (10-50); Mean Corpuscular HGB Conc 33.9 g/dl (31.0-37.0); Mean Corpuscular Hemoglobin 28.2 pg (25.0-35.0); Mean Corpuscular Volume 83 fL (80-100); Monocytes # (Auto) 0.6 Thou/mm3 (0.0-0.8); Monocytes % (Auto) 6 % (0-12); Neutrophils # (Auto) 8.8 Thou/mm3 (1.8-7.7); Neutrophils % (Auto) 86 % (37-80); Nucleated Red Blood Cell # 0.02 Thou/mm3 (0.00-0.00); Nucleated Red Blood Cell % 0 /100 WBC (0); Platelet Count 487 Thou/mm3 (140-440); RDW Standard Deviation 48.9 fL (36.4-46.3); Red Blood Count 5.04 Miln/mm3 (4.00-5.20); White Blood Count 10.2 Thou/mm3 (3.6-11.0)
[2024-12-20] MEDS: SODIUM CHLORIDE 0.9% 1000 ML 1,000 ML 999 ML IV (02:01)
[2024-12-20 02:16] LABS: Alanine Aminotransferase 11 U/L (10-49); Albumin, Serum 3.7 gm/dL (3.4-4.8); Albumin/Globulin Ratio 1.2 (1.2-2.2); Alkaline Phosphatase 65 U/L (46-116); Amylase 71 U/L (30-118); Anion Gap 16 (7-16); Aspartate Amino Transferase 25 U/L (0-34); BUN/Creatinine Ratio 24 Ratio (12-20); Bilirubin,Total 0.3 mg/dL (0.3-1.2); Blood Urea Nitrogen 38 mg/dL (9-23); Calcium 9.9 mg/dL (8.3-10.6); Calcium (Corrected) 10.1 mg/dL (8.5-10.1); Carbon Dioxide 20.7 mMol/L (20.0-31.0); Chloride 92 mMol/L (98-107); Creatinine (Component) 1.6 mg/dL (0.6-1.3); Estimated Creatinine Clearance 21.8 mL/min (>60); Globulin 3.2 gm/dL (2.3-3.5); Glucose 264 mg/dL (74-106); Lipase 50 U/L (12-53); Magnesium 3.4 mg/dL (1.6-2.6); Osmolality,Calculated 276 (275-295); Potassium 5.0 mMol/L (3.4-5.1); Sodium 129 mMol/L (136-145); Total Protein 6.9 gm/dL (5.7-8.2); Troponin I < 0.020 ng/mL (0.0-0.045); eGFR 32 See Note
--- NOTE | 2024-12-20 03:05 | PD.RESHP ---
Documentation for date of: 12/20/24 HPI History of Present Illness Chief complaint: Hematemesis History of present illness: 83-year-old female with past medical history of hyperlipidemia, ceg-uzkycmb-cunnleabq type 2 diabetes, hypothyroidism, dementia presenting to the ED on 12/20 with episode of hematemesis which started on 3 AM 12/19 per daughter who is bedside and provided some history. Patient apparently started having dark brown vomiting episodes, at least 2 episodes with the patient's daughter presenting stain clothing. Patient apparently has baseline dementia and has been progressively having worsening mental status at home. Patient has also apparently been weak with low appetite for the past week. Patient's daughter denies that the patient takes any aspirin, Advil or any other NSAID medications. Patient denies having similar episodes in the past and denies having any melena or hematochezia. Patient also denies having any abdominal pain, chest pain, shortness of breath but does state that she feels weak overall. Medical history: As stated above Surgical history: Surgical repair of wrist, right Allergies: NKDA Medications: Pending med rec Family history: Noncontributory Social history: Patient lives at home with his daughter, uses a walker for ambulation, significant smoking history with 2 pack a day, no alcohol or illicit drug use ROS: All 12 systems assessed and the patient denies unless otherwise stated in HPI In the ED, patient presented normotensive, tachycardic with a heart rate of 103, respiratory rate of 20, afebrile satting 93 on room air. Pertinent lab findings included hemoglobin initially 14.2 dropped to 11.8 with MCV of 83, platelet count of 487, sodium 129, potassium 5.0, creatinine 1.6, BUN 38 with glucose of 264 magnesium 3.4, troponin within normal limits. GI was consulted from the ED and recommended admitting the patient for EGD to be performed morning of 12/20 along with IV Protonix twice daily. Patient will be admitted for upper GI bleed with close monitoring of hemoglobin and EGD scheduled with GI specialist. Exam Vital Signs Temp Pulse Resp BP Pulse Ox O2 Del Method 98.5 F 103 H 17 97/73 95 Room Air 12/19/24 23:55 12/20/24 02:05 12/20/24 02:05 12/20/24 02:05 12/20/24 02:05 12/20/24 02:05 Narrative Exam Physical Exam: GENERAL: Awake, waxes and wanes, but when awake answers questions appropriately in Russian, appears stated age HEENT: NC/AT. Moist mucosa. PERRLA/EOMI. Poor dentition. Conjunctival pallor. Dark brown speckles noted in nares CARDIO: Heart RRR, no obvious murmurs, no JVD. PULM: No coughing or visible SOB. Lungs CTA B/L. GI: Abdomen soft, NT/ND, +BS. SKIN/MSK/EXT: No wounds/discoloration/rashes/edema/amputations noted. +Pedal pulses present B/L. NEURO: Unable to assess as the patient waxes and wanes in mentation, no focal neurologic deficits noted Results: Labs 12/20/24 03:16 12/20/24 01:40 Labs: Short CBC 12/20/24 Range/Units 01:40 WBC 10.2 (3.6-11.0) Thou/mm3 Hgb 14.2 (12.0-16.0) g/dL Hct 41.9 (36.0-46.0) % Plt Count 487 H D (140-440) Thou/mm3 BMP 12/20/24 01:40 Sodium 129 L Potassium 5.0 Chloride 92 L Carbon Dioxide 20.7 BUN 38 H Creatinine 1.6 H Glucose 264 H Calcium 9.9 Cardiac Enzymes 12/20/24 Range/Units 01:40 Troponin I < 0.020 (0.0-0.045) ng/mL Liver Function 12/20/24 Range/Units 01:40 Total Bilirubin 0.3 (0.3-1.2) mg/dL AST 25 (0-34) U/L ALT 11 (10-49) U/L Alkaline Phosphatase 65 (46-116) U/L Albumin 3.7 (3.4-4.8) gm/dL Quality Measures Quality Measures none Advance care planning discussed with:: patient and child Medications Home Medications and Allergies Home Medications ?Medication ?Instructions ?Recorded ?Confirmed ?Type atorvastatin 10 mg tablet 10 mg PO DAILY 11/19/24 11/19/24 History empagliflozin 25 mg tablet 25 mg PO DAILY 11/19/24 11/19/24 History (Jardiance) semaglutide 3 mg tablet (Rybelsus) 3 mg PO .bedtime 11/19/24 11/19/24 History sitagliptin phos 100 mg-metformin 1 tab PO DAILY 11/19/24 11/19/24 History ER 1,000 mg tablet,extend rel 24h mp (Janumet XR) Allergies Allergy/AdvReac Type Severity Reaction Status Date / Time No Known Allergies Allergy Verified 12/19/24 23:52 Visit Medications Discontinued Medications Sodium Chloride (Ns) 1,000 mls @ 999 mls/hr IV .Q1H1M ONE Stop: 12/20/24 01:22 Last Admin: 12/20/24 02:01 Dose: 999 mls/hr Pantoprazole Sodium (Pantoprazole Inj 40 Mg Vial) 40 mg IVP X1 ONE Stop: 12/20/24 00:23 Last Admin: 12/20/24 02:02 Dose: 40 mg Assessment & Plan Plan 83-year-old female with past medical history of hyperlipidemia, qpy-iffegel-fbpeandss type 2 diabetes, hypothyroidism, dementia presenting to the ED on 12/20 with episode of hematemesis will be admitted for upper GI bleed with close monitoring of hemoglobin and EGD scheduled with GI specialist. #Acute blood loss anemia #Likely upper GI bleed #Thrombocytosis As stated in the HPI above, patient's been having multiple episodes of hematemesis with brown vomitus noted Patient denies having any risk factors such as past medical history of PUD, history of taking NSAIDs or aspirin On assessment, patient does have some brown sputum in oropharynx and and dark speckling in ears Patient does not have any abdominal tenderness on deep palpation In the ED, patient started becoming tachycardic and hypotensive and hemoglobin dropped from 14.2-11.8, platelets of 487 ED provider contacted GI specialist who will do EGD in the a.m. Plan: GI consulted, appreciate recommendations Monitoring H/H with morning labs, consider further trend Transfuse if hemoglobin continues to drop in excess Continue IV Protonix 40 twice daily N.p.o. Aspiration precaution and head of bed greater than 30 degrees #CATE #Electrolyte abnormalities Patient presented with creatinine of 1.6 with a baseline between 1.1 and 1.2 eGFR is 57, CKD stage IIIa Likely secondary to patient having acute blood loss, hypovolemia BUN/creatinine ratio greater than 20-1 Plan: IV maintenance fluids 75 cc an hour with 1 bag of NS Avoid nephrotoxic agents Renally dose medications when applicable Monitor with morning labs #Avg-fflmrrj-jrfujzfwm type 2 diabetes Last A1c of 7.6 on November 2024 Plan: Sliding scale insulin every 6 #Hypothyroidism Patient on levothyroxine 88 mcg Premeal a.m. Plan: Restart home medication #Dementia As per HPI above, patient's daughter states that her mental status has been progressively declining in the past several months Patient is able to ambulate prior to this episode with a walker and a cane Patient on donepezil and memantine Plan: Restart home medications when appropriate Health Maintenance: Lines: PIV Diet: N.p.o. Bowel: Senna as needed GI prophylaxis: On IV Protonix 40 twice daily DVT prophylaxis: SCD Dispo: Pending EGD with GI, monitoring hemoglobin for acute blood loss anemia Code: Full Patient seen and examined with attending Dr. Douglas Jean, DO PGY-2 Internal Medicine - GME Attending Provider Attestation/Addendum I have examined the patient, reviewed labs and imaging findings, discussed the case with the resident(s), and reviewed entered orders. I agree with the plan of care as outlined in this note, with these additional summaries/recommendations: After examination of the patient and review of the clinical data, I feel that this patient needs admission to the hospital for further treatment and evaluation. Patient is a 83-year-old female with a medical history of dementia, diabetes mellitus type 2, hypothyroidism, hyperlipidemia, and GERD who presents to [facility] emergency department on 12/20/2024 with chief complaint of hematemesis. Patient and daughter seen at bedside. She reports patient has had multiple episodes of vomitus that appeared bloody that started early in the morning. Daughter denies history of GI bleed and denies that patient takes any anticoagulation. Patient will be admitted for acute blood loss anemia secondary to GI bleed. Unclear how many units of blood have been lost although hemoglobin did decrease to 11.8 from 14.2 the day prior. Symptoms include hematemesis without hemodynamic instability. Differential includes peptic ulcer disease, gastritis, Sierra-Guillaume tear, or AVM. GI consulted with plans for EGD. N.p.o., 2 large-bore IVs, IVF resuscitation to maintain MAP greater than 65, trend H&H, type and screen, transfuse for hemoglobin less than 7, platelet less than 50, INR greater than 1.5. Start pantoprazole gtt. Hold NSAIDs, steroids, and aspirin. No chemical anticoagulation. No history of cirrhosis send no need for octreotide at this time. Jovany Blatchford bleeding score 7 points indicating high risk GI bleed that is likely to require medical intervention. Patient also diagnosed with acute kidney injury. On admission creatinine 1.6 and BUN 38 consistent with GI bleed/prerenal azotemia. Baseline creatinine appears to be between 1.1-1.3. Avoid nephrotoxic agents and renally dose medications. IV fluids and repeat renal panel in AM. Mild hypermagnesia present and monitor for now. Hypotonic hyponatremia present with sodium 129 and osmolality 264. Volume status hypovolemic. Most likely secondary to extrarenal losses/poor oral intake. Patient will receive minimal fluids and repeat level in AM. Resume home donepezil/memantine for dementia when able. Start insulin sliding scale for diabetes mellitus type 2 with Accu-Cheks. Target blood sugar of 140-180 while hospitalized. Continue home statin when able. Patient and family updated on the plan and in agreement. All questions answered to satisfaction. Please see residents note for additional details and management. Dr. Douglas MD
[2024-12-20 03:21] LABS: Hematocrit 34.5 % (36.0-46.0); Hemoglobin 11.8 g/dL (12.0-16.0)
[2024-12-20 03:21] LABS: Collection Type, Urine Clean Catch
[2024-12-20 03:49] LABS: Bilirubin,Urine Negative (Negative); Blood,Urine Negative (Negative); Clarity,Urine Clear (Clear/Hazy); Color,Urine Lt-Yellow (Lt Yel-Yel); Glucose, Urine 4+ (Negative); Granular Casts,Urine < 1 /hpf (0-1); Hyaline Casts,Urine 1 /hpf (0-1); Ketones,Urine 1+ (Negative); Leukocyte Esterase,Urine Negative (Negative); Nitrite,Urine Negative (Negative); PH,Urine 5.0 (5.0-7.0); Protein,Urine Trace (Neg - Trace); RBC,Urine 1 /hpf (0-3); Specific Gravity,Urine 1.023 (1.001-1.035); Squamous Epithelial Cell,Urine < 1 /hpf (0-5); Urobilinogen,Urine 2.0 mg/dL (0.0-1.0); WBC,Urine 1 /hpf (0-5)
[2024-12-20] MEDS: SODIUM CHLORIDE 0.9% 1000 ML 1,000 ML 75 ML IV (03:49)
[2024-12-20] MEDS: INSULIN LISPRO (AdmeLOG) 1 UNIT/0.01 ML UNIT SC ×2 (04:02→12:38)
[2024-12-20 06:36] LABS: Basophils # (Auto) 0.0 Thou/mm3 (0.0-0.2); Basophils % (Auto) 0 % (0-2.5); Eosinophils # (Auto) 0.0 Thou/mm3 (0.0-0.5); Eosinophils % (Auto) 0 % (0-10); Hematocrit 33.0 % (36.0-46.0); Hemoglobin 11.2 g/dL (12.0-16.0); Immature Granulocytes Auto 0.06 Thou/mm3 (0.00-0.00); Lymphocytes # (Auto) 0.5 Thou/mm3 (1.0-4.8); Lymphocytes % (Auto) 6 % (10-50); Mean Corpuscular HGB Conc 33.9 g/dl (31.0-37.0); Mean Corpuscular Hemoglobin 28.2 pg (25.0-35.0); Mean Corpuscular Volume 83 fL (80-100); Monocytes # (Auto) 0.5 Thou/mm3 (0.0-0.8); Monocytes % (Auto) 6 % (0-12); Neutrophils # (Auto) 7.8 Thou/mm3 (1.8-7.7); Neutrophils % (Auto) 87 % (37-80); Nucleated Red Blood Cell # 0.00 Thou/mm3 (0.00-0.00); Nucleated Red Blood Cell % 0 /100 WBC (0); Platelet Count 373 Thou/mm3 (140-440); RDW Standard Deviation 48.6 fL (36.4-46.3); Red Blood Count 3.97 Miln/mm3 (4.00-5.20); White Blood Count 8.9 Thou/mm3 (3.6-11.0)
[2024-12-20 07:21] LABS: Alanine Aminotransferase 7 U/L (10-49); Albumin, Serum 2.7 gm/dL (3.4-4.8); Albumin/Globulin Ratio 1.1 (1.2-2.2); Alkaline Phosphatase 48 U/L (46-116); Anion Gap 12 (7-16); Aspartate Amino Transferase 18 U/L (0-34); BUN/Creatinine Ratio 34 Ratio (12-20); Bilirubin,Total 0.2 mg/dL (0.3-1.2); Blood Urea Nitrogen 41 mg/dL (9-23); Calcium 8.1 mg/dL (8.3-10.6); Calcium (Corrected) 9.1 mg/dL (8.5-10.1); Carbon Dioxide 22.1 mMol/L (20.0-31.0); Chloride 102 mMol/L (98-107); Creatinine (Component) 1.2 mg/dL (0.6-1.3); Estimated Creatinine Clearance 29.0 mL/min (>60); Globulin 2.4 gm/dL (2.3-3.5); Glucose 193 mg/dL (74-106); Magnesium 2.7 mg/dL (1.6-2.6); Osmolality,Calculated 287 (275-295); Phosphorous 3.2 mg/dL (2.4-5.1); Potassium 3.8 mMol/L (3.4-5.1); Sodium 136 mMol/L (136-145); Total Protein 5.1 gm/dL (5.7-8.2); eGFR 45 See Note
[2024-12-20] MEDS: POTASSIUM CHL 10 mEq IVPB 10 MEQ/100 ML BAG 100 MEQ IV ×2 (10:18→11:28)
--- NOTE | 2024-12-20 16:18 | ESPR_ITS ---
Documentation for date of: 12/20/24 Subjective Subjective Interval history: pt admitted by night team with c/f upper GI bleed. Hgb Stable @11. pt family concerned about pt voice sounding more raspy than at baseline. Exam Vital Signs Temp Pulse Resp BP Pulse Ox O2 Del Method 98.1 F 83 18 112/77 91 L Room Air 12/20/24 12:00 12/20/24 12:00 12/20/24 12:00 12/20/24 12:00 12/20/24 12:00 12/20/24 12:00 Vitals over the past 24hours were reviewed: Temp: Afebrile HR: wnl BP: wnl RR: satting well on RA (pt sleeping during exam) Narrative Exam GENERAL: no acute distress, AAO x1 (oriented to self, and , not oriented to place) , comfortably laying in bed HEENT: Head AT/ NC. Mucous membranes dry, poor dentition. CARDIOVASCULAR: RRR. Normal S1/S2, No m/r/g. No pitting edema of bilateral LEs. RESPIRATORY: CTAB. No wheezing, rhonchi, crackles. GASTROINTESTINAL: Abdomen soft, non tender no palpable masses. Bowel sounds present MUSCULOSKELETAL:? No cyanosis or edema, no visible joint swelling. NEUROLOGICAL: pt w hx of dementia, sleepy, but arousable, oriented to self, phonating PSYCHIATRIC: intermittently sleeping however arousable, not agitated, normal mood and affect. SKIN: No obvious rashes, no jaundice, normal turgor. Objective Labs 12/21/24 05:07 12/21/24 05:07 Labs: Laboratory Results - last 24 hr 12/20/24 12/20/24 12/20/24 01:40 03:15 03:16 WBC 10.2 RBC 5.04 Hgb 14.2 11.8 L D Hct 41.9 34.5 L MCV 83 MCH 28.2 MCHC 33.9 RDW Std Deviation 48.9 H Plt Count 487 H D Neut % (Auto) 86 H Lymph % (Auto) 7 L Dane % (Auto) 6 Eos % (Auto) 0 Baso % (Auto) 0 Neut # (Auto) 8.8 H Lymph # (Auto) 0.7 L Dane # (Auto) 0.6 Eos # (Auto) 0.0 Baso # (Auto) 0.0 Immature Gran # (Auto) 0.09 H Absolute Nucleated RBC 0.02 H Immature Gran % 1 H Nucleated RBC % 0 Sodium 129 L Potassium 5.0 Chloride 92 L Carbon Dioxide 20.7 Anion Gap 16 BUN 38 H Creatinine 1.6 H Estim Creat Clear Calc 21.8 L eGFR 32 L BUN/Creatinine Ratio 24 H Glucose 264 H Calculated Osmolality 276 Calcium 9.9 Corrected Calcium 10.1 Phosphorus Magnesium 3.4 H Total Bilirubin 0.3 AST 25 ALT 11 Alkaline Phosphatase 65 Troponin I < 0.020 Total Protein 6.9 Albumin 3.7 Globulin 3.2 Albumin/Globulin Ratio 1.2 Amylase 71 Lipase 50 Ur Collection Type Clean Catch Urine Color Lt-Yellow Urine Clarity Clear Urine pH 5.0 Ur Specific [place] 1.023 Urine Protein Trace Urine Glucose (UA) 4+ A Urine Ketones 1+ A Urine Blood Negative Urine Nitrite Negative Urine Bilirubin Negative Urine Urobilinogen (Auto) 2.0 Ur Leukocyte Esterase Negative Urine RBC 1 Urine WBC 1 Ur Squamous Epith Cells < 1 Urine Bacteria None Hyaline Casts 1 Granular Casts < 1 12/20/24 06:21 WBC 8.9 RBC 3.97 L Hgb 11.2 L Hct 33.0 L MCV 83 MCH 28.2 MCHC 33.9 RDW Std Deviation 48.6 H Plt Count 373 D Neut % (Auto) 87 H Lymph % (Auto) 6 L Dane % (Auto) 6 Eos % (Auto) 0 Baso % (Auto) 0 Neut # (Auto) 7.8 H Lymph # (Auto) 0.5 L Dane # (Auto) 0.5 Eos # (Auto) 0.0 Baso # (Auto) 0.0 Immature Gran # (Auto) 0.06 H Absolute Nucleated RBC 0.00 Immature Gran % 1 H Nucleated RBC % 0 Sodium 136 Potassium 3.8 D Chloride 102 Carbon Dioxide 22.1 Anion Gap 12 BUN 41 H Creatinine 1.2 Estim Creat Clear Calc 29.0 L eGFR 45 L BUN/Creatinine Ratio 34 H Glucose 193 H D Calculated Osmolality 287 Calcium 8.1 L D Corrected Calcium 9.1 Phosphorus 3.2 Magnesium 2.7 H Total Bilirubin 0.2 L AST 18 ALT 7 L Alkaline Phosphatase 48 D Troponin I Total Protein 5.1 L Albumin 2.7 L D Globulin 2.4 Albumin/Globulin Ratio 1.1 L Amylase Lipase Ur Collection Type Urine Color Urine Clarity Urine pH Ur Specific [place] Urine Protein Urine Glucose (UA) Urine Ketones Urine Blood Urine Nitrite Urine Bilirubin Urine Urobilinogen (Auto) Ur Leukocyte Esterase Urine RBC Urine WBC Ur Squamous Epith Cells Urine Bacteria Hyaline Casts Granular Casts Quality Measures Quality Measures none Advance care planning discussed with:: child Assessment & Plan Assessment Current Active Medications: Generic Name Dose Route Start Last Admin Trade Name Freq PRN Reason Stop Dose Admin Acetaminophen 650 mg 12/20/24 03:01 Acetaminophen 325 Mg Tablet PO 01/19/25 03:00 Q6H PRN Pain 1-3 and/or Fever >100.1 Dextrose 25 ml 12/20/24 03:01 Dextrose 50%-Water Inj 50 Ml Syringe IV 01/19/25 03:00 Q15MIN PRN BG 50-70 responsive npo pt Dextrose 50 ml 12/20/24 03:01 Dextrose 50%-Water Inj 50 Ml Syringe IV 01/19/25 03:00 Q15MIN PRN BG <50 OR BG <70 & pt unresponsive Donepezil HCl 5 mg 12/20/24 21:00 Donepezil Hcl 5 Mg Tablet PO 01/19/25 20:59 HS FAUSTINA Glucagon 1 mg 12/20/24 03:01 Glucagon Inj 1 Mg Vial IM Q15MIN PRN BG <70, and no IV access Sodium Chloride 1,000 mls @ 75 mls/hr 12/20/24 03:15 12/20/24 03:49 Ns IV 12/20/24 16:34 75 mls/hr .[id number] FAUSTINA Administration Insulin Human Lispro 0 unit 12/20/24 12:00 12/20/24 12:38 Insulin Lispro (Admelog) 1 Unit/0.01 Ml Unit SC 01/19/25 11:59 1 unit Q6HR FAUSTINA Administration Protocol Levothyroxine Sodium 88 mcg 12/21/24 06:00 Levothyroxine Sodium 88 Mcg Tablet PO 01/20/25 05:59 ACBR FAUSTINA Morphine Sulfate 2 mg 12/20/24 03:01 Morphine Sulf Inj 10 Mg/Ml Vial IVP 12/25/24 03:00 Q2H PRN PAIN SCALE 7-10 (Severe Ondansetron HCl 4 mg 12/20/24 03:01 Ondansetron Inj 2 Mg/Ml Inj 2 Ml IVP 01/19/25 03:00 Q6H PRN NAUSEA OR VOMITING Protocol Pantoprazole Sodium 40 mg 12/20/24 09:00 12/20/24 08:41 Pantoprazole Inj 40 Mg Vial IVP 01/19/25 08:59 40 mg BID FAUSTINA Administration Sennosides 1 tab 12/20/24 03:01 Senna Tablet PO 01/19/25 03:00 QDAY PRN constipation Protocol Plan 83-year-old female with past medical history of hyperlipidemia, omh-wganbuq-gjetmsmfl type 2 diabetes, hypothyroidism, dementia presenting to the ED on 12/20 with episode of hematemesis admitted for upper GI bleed with close monitoring of hemoglobin (Hgb stable @ 11) at and NPO pending EGD scheduled with GI specialist. #Acute blood loss anemia #Likely upper GI bleed #Thrombocytosis As stated in the HPI above, patient's been having multiple episodes of hematemesis with brown vomitus noted Patient denies having any risk factors such as past medical history of PUD, history of taking NSAIDs or aspirin On assessment, patient does have some brown sputum in oropharynx and and dark speckling in ears Patient does not have any abdominal tenderness on deep palpation In the ED, patient started becoming tachycardic and hypotensive and hemoglobin dropped from 14.2-11.8, platelets of 487 ED provider contacted GI specialist who will do EGD in the a.m. Hgb stable at 11, CTM Dx: - Daily CBC - GI consulted, appreciate recommendations Tx - Transfuse if hemoglobin continues to drop in excess - Continue IV Protonix 40 twice daily - NPO pending EGD today - Aspiration precaution and head of bed greater than 30 degrees #Sepsis with evidence of end organ damage (CATE) #CATE (Cr 1.6 from 1.1)- Resolving Ddx prerenal vs intra vs post renal, favor prerenal given improving Cr with fluids Patient presented with creatinine of 1.6 with a baseline between 1.1 and 1.2 eGFR is 57, CKD stage IIIa Likely secondary to patient having acute blood loss, hypovolemia BUN/creatinine ratio greater than 20-1 pt takes Jardiance at home Plan: IV maintenance fluids 60 cc an hour with 2 bag of LR Avoid nephrotoxic agents Renally dose medications when applicable Monitor with morning labs #Electrolyte abnormalities #mild Hypermagnesium- RESOLVING consider disturbances, may be 2/2 GI losses given recent emesis. CTM Dx - Daily CMP, Mg, and Phos Tx - Replete as needed - cont maintence fluids with LR #Poor PO Intake #Frailty #Possible Dysphagia per family, pt reports difficulty with swallowing at home, which may be contributing to her poor PO intake and subsequent frailty per pt family, within the past month pt has had decreased appetite and 2/2 dementia is also possibly forgetting to eat. Pt has lost weight due to poor intake Dx - Speech consult after GI bleed workup is complete: appreciate recs - consider dietitian consult #Fxj-[id number]-snuacxfpu type 2 diabetes Last A1c of 7.6 on November 2024 Plan: Sliding scale insulin every 6 #Hypothyroidism Patient on levothyroxine 88 mcg Premeal a.m. Plan: Restart home medication #Dementia As per HPI above, patient's daughter states that her mental status has been progressively declining in the past several months but severe worsening in the past month. Patient is able to ambulate prior to this episode with a walker and a cane Patient on donepezil and memantine Plan: Restart home medications when appropriate Health Maintenance: Lines: PIV Diet: N.p.o., per pt family pt has mostly been drinking ensures and eating jello at home. Bowel: Senna as needed GI prophylaxis: On IV Protonix 40 twice daily DVT prophylaxis: SCD Dispo: Pending EGD with GI, monitoring hemoglobin for acute blood loss anemia Code: Full Case discussed with my attending Dr. Nacho Carl MD PGY-1 Attending Provider Attestation/Addendum Gaudencio, Yoko Griffith DO, attest that I was physically present for the phillip portions of the service and evaluated the patient with the resident and I reviewed and discussed the case with the resident and agree with the resident's findings and plans of care as documented above Patient seen and eval this a.m. Family is at bedside. They state that the patient has been having poor p.o. intake for the past month. They endorse noticing her weight loss. Patient yesterday had about 4 episodes of coffee- ground emesis. Patient has never had any previous history of coffee-ground emesis and denies any complaints of abdominal pain in the past. Daughter states that it appears that patient has trouble swallowing. She is currently NPO due to anticipated EGD. Will have speech therapy evaluate patient once diet has been advanced. Will f/u with GI recommendations. Patient has not had any further episodes of nausea or vomiting since admission. Continue with IV fluid hydration.
[2024-12-20] MEDS: RINGERS LACTATED 1000 ML 1,000 ML 60 ML IV (17:20)
--- NOTE | 2024-12-20 19:17 | ESCONSULT_ITS ---
HPI Data of Consult Requesting Physician: Yoko Griffith DO Admitting Provider: Giovanni Cole MD Attending Provider: Yoko Griffith DO Primary Care Provider: Physician No Primary/Family Consult Narrative History of present illness: 83-year-old female former smoker with a past medical history of dementia, type 2 diabetes mellitus, hyperlipidemia, and hypothyroidism presented to the ED on 12/20 with hematemesis, which began around 3:00 AM on 12/19. According to her daughter, who provided the history at bedside, the patient has been at her cognitive baseline until approximately one day prior to presentation. Patient has been at her cognitive baseline until yesterday, when she began appearing more fatigued with decreased appetite. Patient has also been experiencing pain with swallowing. No prior episodes of hematemesis reported. Bowel movements occur every 2?3 days, which is normal for her. She takes ibuprofen as needed for arthritis. No known history of similar GI symptoms in the past. ED course: The patient presented normotensive and afebrile, with a heart rate of 103, respiratory rate of 20, and oxygen saturation of 93% on room air. Initial laboratory evaluation was notable for a hemoglobin of 14.2, which subsequently declined to 11.8. MCV was 83, platelet count of 487. Electrolytes showed hyponatremia with sodium at 129, potassium 5.0, elevated creatinine at 1.6, BUN 38, glucose 264, and magnesium 3.4. The patient was initiated on IV Protonix. cc:: cc: Yoko Griffith DO Review of Systems Review of Systems Narrative Review of Systems: All 12 systems assessed and the patient denies unless otherwise stated in HPI. Allergic/Immunologic Comments: NKDA Past Medical History Family History OTHER FAMILY HX: noncontributory Surgical History OTHER SURGICAL HX: History of abdominal surgery in [place], reported as either cholecystectomy or abdominal hernia repair Social History SOCIAL: Patient lives at home with daughter, uses a walker for ambulation, significant smoking history 1 pack a day for 40-50 years, no alcohol or illicit drug use. Exam Vital Signs Temp Pulse Resp BP Pulse Ox O2 Del Method 98.1 F 80 18 112/77 91 L Room Air 12/20/24 12:12/20/24 16:00 12/20/24 12:12/20/24 12:00 12/20/24 12:12/20/24 12:00 Narrative Exam GENERAL: no acute distress, comfortably sleeping in bed. CARDIOVASCULAR: RRR. No murmurs, rubs or gallops. No pitting edema of bilateral LEs. GASTROINTESTINAL: Soft, nondistended, nontender, decreased bowel sounds. No guarding or rebound tenderness. NEUROLOGICAL: Hx of dementia, sleeping but arousable during physical exam. SKIN: No obvious rashes, no jaundice. Results Labs 12/21/24 05:07 12/21/24 05:07 Labs: Short CBC 12/20/24 12/20/24 12/20/24 Range/Units 01:40 03:16 06:21 WBC 10.2 8.9 (3.6-11.0) Thou/mm3 Hgb 14.2 11.8 L D 11.2 L (12.0-16.0) g/dL Hct 41.9 34.5 L 33.0 L (36.0-46.0) % Plt Count 487 H D 373 D (140-440) Thou/mm3 BMP 12/20/24 12/20/24 01:40 06:21 Sodium 129 L 136 Potassium 5.0 3.8 D Chloride 92 L 102 Carbon Dioxide 20.7 22.1 BUN 38 H 41 H Creatinine 1.6 H 1.2 Glucose 264 H 193 H D Calcium 9.9 8.1 L D Cardiac Enzymes 12/20/24 Range/Units 01:40 Troponin I < 0.020 (0.0-0.045) ng/mL Liver Function 12/20/24 12/20/24 Range/Units 01:40 06:21 Total Bilirubin 0.3 0.2 L (0.3-1.2) mg/dL AST 25 18 (0-34) U/L ALT 11 7 L (10-49) U/L Alkaline Phosphatase 65 48 D (46-116) U/L Albumin 3.7 2.7 L D (3.4-4.8) gm/dL Urine 12/20/24 Range/Units 03:15 Urine Color Lt-Yellow (Lt Yel-Yel) Urine Clarity Clear (Clear/Hazy) Urine pH 5.0 (5.0-7.0) Ur Specific [place] 1.023 (1.001-1.035) Urine Protein Trace (Neg - Trace) Urine Glucose (UA) 4+ A (Negative) Quality Measures Quality Measures none Advance care planning discussed with:: other (Not discussed by our team) Medications Home Medications and Allergies Home Medications ?Medication ?Instructions ?Recorded ?Confirmed ?Type atorvastatin 10 mg tablet 10 mg PO HS 11/19/24 5 History empagliflozin 25 mg tablet 25 mg PO DAILY 11/19/2401/07 History (Jardiance) donepezil 5 mg tablet 5 mg PO HS 12/20/24 12/20/24 History levothyroxine 88 mcg tablet 88 mcg PO ACBR 12/20/24 History sitagliptin phosphate 100 mg 100 mg PO QDAY 12/20/24 0 12/20/24 History tablet (Januvia) Allergies Allergy/AdvReac Type Severity Reaction Status Date / Time No Known Allergies Allergy Verified 12/19/24 23:52 Visit Medications Acetaminophen (Acetaminophen 325 Mg Tablet) 650 mg PO Q6H PRN PRN Reason: Pain 1-3 and/or Fever >100.1 Stop: 01/19/25 03:00 Dextrose (Dextrose 50%-Water Inj 50 Ml Syringe) 25 ml IV Q15MIN PRN PRN Reason: BG 50-70 responsive npo pt Stop: 01/19/25 03:00 Dextrose (Dextrose 50%-Water Inj 50 Ml Syringe) 50 ml IV Q15MIN PRN PRN Reason: BG <50 OR BG <70 & pt unresponsive Stop: 01/19/25 03:00 Donepezil HCl (Donepezil Hcl 5 Mg Tablet) 5 mg PO [facility] Stop: 01/19/25 20:59 Glucagon (Glucagon Inj 1 Mg Vial) 1 mg IM Q15MIN PRN PRN Reason: BG <70, and no IV access Lactated Ringer's (Lactated Ringers) 1,000 mls @ 60 mls/hr IV .[id number] [facility] Stop: 12/22/24 02:05 Last Admin: 12/20/24 17:20 Dose: 60 mls/hr Insulin Human Lispro (Insulin Lispro (Admelog) 1 Unit/0.01 Ml Unit) 0 unit SC Q6HR FAUSTINA; Protocol Stop: 01/19/25 11:59 Last Admin: 12/20/24 17:57 Dose: Not Given Levothyroxine Sodium (Levothyroxine Sodium 88 Mcg Tablet) 88 mcg PO ACBR [facility] Stop: 01/20/25 05:59 Morphine Sulfate (Morphine Sulf Inj 10 Mg/Ml Vial) 2 mg IVP Q2H PRN PRN Reason: PAIN SCALE 7-10 (Severe Stop: 12/25/24 03:00 Ondansetron HCl (Ondansetron Inj 2 Mg/Ml Inj 2 Ml) 4 mg IVP Q6H PRN; Protocol PRN Reason: NAUSEA OR VOMITING Stop: 01/19/25 03:00 Pantoprazole Sodium (Pantoprazole Inj 40 Mg Vial) 40 mg IVP BID [facility] Stop: 01/19/25 08:59 Last Admin: 12/20/24 08:41 Dose: 40 mg Sennosides (Senna Tablet) 1 tab PO QDAY PRN; Protocol PRN Reason: constipation Stop: 01/19/25 03:00 Discontinued Medications Sodium Chloride (Ns) 1,000 mls @ 999 mls/hr IV .Q1H1M ONE Stop: 12/20/24 01:22 Last Infusion: 12/20/24 03:12 Dose: Infused Sodium Chloride (Ns) 1,000 mls @ 75 mls/hr IV .[id number] [facility] Stop: 12/20/24 16:34 Last Admin: 12/20/24 03:49 Dose: 75 mls/hr Potassium Chloride (Kcl Ivpb) 10 meq in 100 mls @ 100 mls/hr IV Q1H [facility] Stop: 12/20/24 11:03 Last Infusion: 12/20/24 12:28 Dose: Infused Potassium Chloride (Kcl Ivpb) 10 meq in 100 mls @ 100 mls/hr IV Q1H [facility] Stop: 12/20/24 18:57 Last Admin: 12/20/24 17:16 Dose: Not Given Insulin Human Lispro (Insulin Lispro (Admelog) 1 Unit/0.01 Ml Unit) 0 unit SC Q6H [facility]USTINA; Protocol Stop: 01/19/25 03:14 Last Admin: 12/20/24 04:02 Dose: 2 unit Pantoprazole Sodium (Pantoprazole Inj 40 Mg Vial) 40 mg IVP X1 ONE Stop: 12/20/24 00:23 Last Admin: 12/20/24 02:02 Dose: 40 mg Pantoprazole Sodium (Pantoprazole Inj 40 Mg Vial) 40 mg IVP QDAY [facility] Stop: 01/19/25 08:59 Assessment & Plan Plan 83-year-old female with past medical history of dementia, type 2 diabetes mellitus, hyperlipidemia, and hypothyroidism presenting to the ED on 12/20 with episode of hematemesis admitted for suspected upper GI bleed. #Hematemesis #Acute blood loss - Hemoglobin 11.2, BUN 41, Cr 1.2, BUN:Cr 34 - Plan for fiberoptic esophagogastroduodenoscopy with possible biopsy , possible therapeutic intervention, under IV moderate sedation - NPO, starting at midnight tonight, expect PO meds - Continue Pantoprazole BID 40mg IV - Transfusing for hemoglobin <7 - Avoid NSAIDs in the future Case discussed with Attending Dr. Palomares. Latoya Romero PGY1 Attending Provider Attestation/Addendum Attending physician attestation Patient examined evaluated laboratory work reviewed imaging studies reviewed along with the discussion with the internal medicine resident Care plan formulated which include fiberoptic esophagogastroduodenoscopy under intravenous moderate sedation with possible biopsy possible therapeutic intervention scheduled for tomorrow N.p.o. midnight tonight except p.o. meds IV Protonix Will follow the patient
--- NOTE | 2024-12-20 21:00 | PC.NURSE ---
Dr. Palomares in to see patient, plans to do EGD tomorrow evening.
[2024-12-21] VITALS (15 sets, daily range): BP systolic 101–149; BP diastolic 60–102; PULSE 76–111; RESP 16–23; TEMP 35.9–36.3; O2SAT 91–98
[2024-12-21 06:24] LABS: Basophils # (Auto) 0.0 Thou/mm3 (0.0-0.2); Basophils % (Auto) 0 % (0-2.5); Eosinophils # (Auto) 0.1 Thou/mm3 (0.0-0.5); Eosinophils % (Auto) 1 % (0-10); Hematocrit 33.6 % (36.0-46.0); Hemoglobin 11.2 g/dL (12.0-16.0); Immature Granulocytes Auto 0.05 Thou/mm3 (0.00-0.00); Lymphocytes # (Auto) 0.6 Thou/mm3 (1.0-4.8); Lymphocytes % (Auto) 10 % (10-50); Mean Corpuscular HGB Conc 33.3 g/dl (31.0-37.0); Mean Corpuscular Hemoglobin 28.1 pg (25.0-35.0); Mean Corpuscular Volume 84 fL (80-100); Monocytes # (Auto) 0.6 Thou/mm3 (0.0-0.8); Monocytes % (Auto) 9 % (0-12); Neutrophils # (Auto) 5.1 Thou/mm3 (1.8-7.7); Neutrophils % (Auto) 79 % (37-80); Nucleated Red Blood Cell # 0.00 Thou/mm3 (0.00-0.00); Nucleated Red Blood Cell % 0 /100 WBC (0); Platelet Count 374 Thou/mm3 (140-440); RDW Standard Deviation 50.4 fL (36.4-46.3); Red Blood Count 3.98 Miln/mm3 (4.00-5.20); White Blood Count 6.4 Thou/mm3 (3.6-11.0)
[2024-12-21 07:11] LABS: Alanine Aminotransferase 8 U/L (10-49); Albumin, Serum 2.9 gm/dL (3.4-4.8); Albumin/Globulin Ratio 1.2 (1.2-2.2); Alkaline Phosphatase 50 U/L (46-116); Anion Gap 12 (7-16); Aspartate Amino Transferase 20 U/L (0-34); BUN/Creatinine Ratio 38 Ratio (12-20); Bilirubin,Total 0.3 mg/dL (0.3-1.2); Blood Urea Nitrogen 34 mg/dL (9-23); Calcium 8.9 mg/dL (8.3-10.6); Calcium (Corrected) 9.8 mg/dL (8.5-10.1); Carbon Dioxide 22.8 mMol/L (20.0-31.0); Chloride 103 mMol/L (98-107); Creatinine (Component) 0.9 mg/dL (0.6-1.3); Estimated Creatinine Clearance 39.9 mL/min (>60); Globulin 2.5 gm/dL (2.3-3.5); Glucose 135 mg/dL (74-106); Magnesium 2.4 mg/dL (1.6-2.6); Osmolality,Calculated 285 (275-295); Phosphorous 2.9 mg/dL (2.4-5.1); Potassium 4.2 mMol/L (3.4-5.1); Sodium 138 mMol/L (136-145); Total Protein 5.4 gm/dL (5.7-8.2); eGFR > 60 See Note
--- NOTE | 2024-12-21 09:56 | PCS.ST ---
Patient Jolene Wade is a 84 Year old female admitted for Upper GI Bleed. SS Contacted patient's grand daughter, Gracie Ulloa to discuss discharge plan and verify demographic and contact information. Patient grand daughter reports patient resides at with her daughter, Jennifer Lombardo who is patient's surrogate decision maker [phone]. Patient utilizes a cane to assist with ambulation as well as a Rollator Walker. Patient needs minimal assistance completing ADL's. pharmacy of choice is [facility] [place]. PCP is Ijeoma Freeman. At time of discharge family will provide transportation. D/C plan: Home Next of Kin: Daughter, Jennifer Lombardo [phone], Grand daughter, Gracie Ulloa [phone]
--- NOTE | 2024-12-21 10:35 | ESPR_ITS ---
<Statement entered by Imer Matson MD - 12/21/24 17:10> Patient seen and examined at bedside, no acute overnight events. I discussed and supervised with the application development intern physician who took care of this patient. I personally saw and examined the patient. I agree with most of the assessment and plan. Patient Hg stable. Pending EGD tonight. IV protonix, IVF with LR.CATE resolved. Plan of care discussed with attending Dr. Griffith. Imer Matson MD PGY-2 Documentation for date of: 12/21/24 Subjective Subjective Interval history: pt more awake and responsive this AM, reporting need to use the bathroom no abdominal pain, no n/v No acute events overnight pending EGD today Exam Vital Signs Temp Pulse Resp BP Pulse Ox O2 Del Method 97.0 F 78 18 120/71 91 L Room Air 12/21/24 08:00 12/21/24 08:00 12/21/24 08:00 12/21/24 08:00 12/21/24 08:00 12/21/24 08:00 Vitals over the past 24hours were reviewed: Temp: Afebrile HR: wnl BP: wnl RR: satting well on RA Narrative Exam GENERAL: no acute distress, AAO x 2 (oriented to self, and , oriented to place (knows that she is in [place], not that she is in the hospital) , comfortably laying in bed HEENT: Head AT/ NC. Mucous membranes moist, poor dentition. CARDIOVASCULAR: RRR. Normal S1/S2, No m/r/g. No pitting edema of bilateral LEs. RESPIRATORY: CTAB. No wheezing, rhonchi, crackles. GASTROINTESTINAL: Abdomen soft, non tender no palpable masses. Bowel sounds present MUSCULOSKELETAL:? No cyanosis or edema, no visible joint swelling. NEUROLOGICAL: pt w hx of dementia, awake and alert, oriented to self and place, moving all extremity spontaneously, floor coverings installer grossly intact. PSYCHIATRIC: not agitated, normal mood and affect. SKIN: No obvious rashes, no jaundice, normal turgor. Objective Labs 12/22/24 04:53 12/22/24 04:53 Labs: Laboratory Results - last 24 hr 12/21/24 05:07 WBC 6.4 RBC 3.98 L Hgb 11.2 L Hct 33.6 L MCV 84 MCH 28.1 MCHC 33.3 RDW Std Deviation 50.4 H Plt Count 374 Neut % (Auto) 79 Lymph % (Auto) 10 Spencer % (Auto) 9 Eos % (Auto) 1 Baso % (Auto) 0 Neut # (Auto) 5.1 Lymph # (Auto) 0.6 L Spencer # (Auto) 0.6 Eos # (Auto) 0.1 Baso # (Auto) 0.0 Immature Gran # (Auto) 0.05 H Absolute Nucleated RBC 0.00 Immature Gran % 1 H Nucleated RBC % 0 Sodium 138 Potassium 4.2 Chloride 103 Carbon Dioxide 22.8 Anion Gap 12 BUN 34 H Creatinine 0.9 Estim Creat Clear Calc 39.9 L eGFR > 60 BUN/Creatinine Ratio 38 H Glucose 135 H D Calculated Osmolality 285 Calcium 8.9 Corrected Calcium 9.8 Phosphorus 2.9 Magnesium 2.4 Total Bilirubin 0.3 AST 20 ALT 8 L Alkaline Phosphatase 50 Total Protein 5.4 L Albumin 2.9 L Globulin 2.5 Albumin/Globulin Ratio 1.2 Quality Measures Quality Measures none Advance care planning discussed with:: patient and child Assessment & Plan Assessment Current Active Medications: Generic Name Dose Route Start Last Admin Trade Name Freq PRN Reason Stop Dose Admin Acetaminophen 650 mg 12/20/24 03:01 Acetaminophen 325 Mg Tablet PO 01/19/25 03:00 Q6H PRN Pain 1-3 and/or Fever >100.1 Dextrose 25 ml 12/20/24 03:01 Dextrose 50%-Water Inj 50 Ml Syringe IV 01/19/25 03:00 Q15MIN PRN BG 50-70 responsive npo pt Dextrose 50 ml 12/20/24 03:01 Dextrose 50%-Water Inj 50 Ml Syringe IV 01/19/25 03:00 Q15MIN PRN BG <50 OR BG <70 & pt unresponsive Donepezil HCl 5 mg 12/20/24 21:00 12/20/24 20:39 Donepezil Hcl 5 Mg Tablet PO 01/19/25 20:59 Not Given HS FAUSTINA Glucagon 1 mg 12/20/24 03:01 Glucagon Inj 1 Mg Vial IM Q15MIN PRN BG <70, and no IV access Lactated Ringer's 1,000 mls @ 60 mls/hr 12/20/24 16:46 12/20/24 17:20 Lactated Ringers IV 12/22/24 02:05 60 mls/hr .[id number] FAUSTINA Administration Insulin Human Lispro 0 unit 12/20/24 12:00 12/21/24 05:26 Insulin Lispro (Admelog) 1 Unit/0.01 Ml Unit SC 01/19/25 11:59 Not Given Q6HR FAUSTINA Protocol Levothyroxine Sodium 88 mcg 12/21/24 06:00 12/21/24 05:09 Levothyroxine Sodium 88 Mcg Tablet PO 01/20/25 05:59 Not Given ACBR [facility]INA Morphine Sulfate 2 mg 12/20/24 03:01 Morphine Sulf Inj 10 Mg/Ml Vial IVP 12/25/24 03:00 Q2H PRN PAIN SCALE 7-10 (Severe Ondansetron HCl 4 mg 12/20/24 03:01 Ondansetron Inj 2 Mg/Ml Inj 2 Ml IVP 01/19/25 03:00 Q6H PRN NAUSEA OR VOMITING Protocol Pantoprazole Sodium 40 mg 12/20/24 09:00 12/21/24 08:05 Pantoprazole Inj 40 Mg Vial IVP 01/19/25 08:59 40 mg BID FAUSTINA Administration Sennosides 1 tab 12/20/24 03:01 Senna Tablet PO 01/19/25 03:00 QDAY PRN constipation Protocol Plan 83-year-old female with past medical history of hyperlipidemia, [id number] type 2 diabetes, hypothyroidism, dementia presenting to the ED on 12/20 with episode of hematemesis admitted for upper GI bleed with close monitoring of hemoglobin (Hgb stable @ 11) at and NPO pending EGD scheduled with GI. consulted dietitian and speech given frailty and family concern for dysphagia. #Acute blood loss anemia #Likely upper GI bleed #Thrombocytosis As stated in the HPI above, patient's been having multiple episodes of hematemesis with brown vomitus noted Patient denies having any risk factors such as past medical history of PUD, history of taking NSAIDs or aspirin On assessment, patient does have some brown sputum in oropharynx and and dark speckling in ears Patient does not have any abdominal tenderness on deep palpation In the ED, patient started becoming tachycardic and hypotensive and hemoglobin dropped from 14.2-11.8, platelets of 487 ED provider contacted GI specialist who will do EGD in the a.m. Hgb stable at 11, CTM Dx: - Daily CBC - GI consulted, appreciate recommendations Tx - Transfuse if hemoglobin continues to drop in excess - Continue IV Protonix 40 twice daily - NPO pending EGD today - Aspiration precaution and head of bed greater than 30 degrees #Poor PO Intake #Frailty #Possible Dysphagia per family, pt reports difficulty with swallowing at home, which may be contributing to her poor PO intake and subsequent frailty per pt family, within the past month pt has had decreased appetite and 2/2 dementia is also possibly forgetting to eat. Pt has lost weight due to poor intake Dx - Speech consulted appreciate recs - dietitian consulted appreciate recs #Sepsis with evidence of end organ damage (CATE) #CATE (Cr 0.9 from 1.2)- RESOLVED Ddx prerenal vs intra vs post renal, favor prerenal given improving Cr with fluids Patient presented with creatinine of 1.6 with a baseline between 1.1 and 1.2 eGFR is 57, CKD stage IIIa Likely secondary to patient having acute blood loss, hypovolemia BUN/creatinine ratio greater than 20-1 pt takes Jardiance at home Plan: - cont IV maintenance fluids 60 cc an hour with 2 bag of LR - Avoid nephrotoxic agents - Renally dose medications when applicable - Monitor with morning labs #Electrolyte abnormalities #mild Hypermagnesium- RESOLVED consider disturbances, may have be 2/2 GI losses given recent emesis. Dx - Daily CMP, Mg, and Phos Tx - Replete as needed - cont maintence fluids with LR CHRONIC #[id number] type 2 diabetes Last A1c of 7.6 on November 2024 Plan: Sliding scale insulin every 6 #Hypothyroidism Patient on levothyroxine 88 mcg Premeal a.m. Plan: Restart home medication #Dementia As per HPI above, patient's daughter states that her mental status has been progressively declining in the past several months but severe worsening in the past month. Patient is able to ambulate prior to this episode with a walker and a cane Patient on donepezil and memantine Plan: Restart home medications when appropriate Health Maintenance: Dispo: Pending EGD with GI, and evaluation with speech, and dietitian, monitoring hemoglobin for acute blood loss anemia Lines: PIV maintence fluids Diet: N.p.o., per pt family pt has mostly been drinking ensures and eating jello at home. Bowel: Senna as needed GI prophylaxis: On IV Protonix 40 twice daily DVT prophylaxis: SCD Code: Full Case discussed with my attending Dr. Nacho Carl MD PGY-1 Attending Provider Attestation/Addendum Yoko Ratliff, , attest that I was physically present for the phillip portions of the service and evaluated the patient with the resident and I reviewed and discussed the case with the resident and agree with the resident's findings and plans of care as documented above Patient seen and eval this a.m. Patient is much more alert and interactive and back at her baseline. No acute events overnight. No further episodes of nausea or vomiting. GI recommendations appreciated H&H is stable. Will follow with EGD results this evening. Patient will need speech therapy evaluation following endoscopy.'s case discussed with speech therapy in anticipation of evaluation once patient is no longer NPO. Daughter is at bedside otherwise. All questions and concerns addressed to her satisfaction.
[2024-12-21] MEDS: RINGERS LACTATED 1000 ML 1,000 ML 60 ML IV (10:49)
--- NOTE | 2024-12-21 14:20 | PCS.ST ---
Swallow Evaluation ordered. Pt is NPO for EGD. Will complete when cleared for PO diet.
--- NOTE | 2024-12-21 19:24 | PC.NURSE ---
TO OR FOR EGD
--- NOTE | 2024-12-21 20:10 | SUR.PHASEI ---
Arrived to recovery via gurney to [facility]. Report received from Paige MOULTON. Resting with eyes closed but responds to name. Responding to questions and commands appropriately. No r/o pain or discomfort. No s/o distress or discomfort.
[2024-12-22] VITALS (7 sets, daily range): BP systolic 107–122; BP diastolic 74–84; PULSE 85–112; RESP 12–19; TEMP 36–36.6; O2SAT 92–95; BMI 26.0
[2024-12-22 06:02] LABS: Basophils # (Auto) 0.0 Thou/mm3 (0.0-0.2); Basophils % (Auto) 0 % (0-2.5); Eosinophils # (Auto) 0.0 Thou/mm3 (0.0-0.5); Eosinophils % (Auto) 1 % (0-10); Hematocrit 33.8 % (36.0-46.0); Hemoglobin 11.3 g/dL (12.0-16.0); Immature Granulocytes Auto 0.06 Thou/mm3 (0.00-0.00); Lymphocytes # (Auto) 0.6 Thou/mm3 (1.0-4.8); Lymphocytes % (Auto) 9 % (10-50); Mean Corpuscular HGB Conc 33.4 g/dl (31.0-37.0); Mean Corpuscular Hemoglobin 28.0 pg (25.0-35.0); Mean Corpuscular Volume 84 fL (80-100); Monocytes # (Auto) 0.6 Thou/mm3 (0.0-0.8); Monocytes % (Auto) 9 % (0-12); Neutrophils # (Auto) 5.4 Thou/mm3 (1.8-7.7); Neutrophils % (Auto) 81 % (37-80); Nucleated Red Blood Cell # 0.00 Thou/mm3 (0.00-0.00); Nucleated Red Blood Cell % 0 /100 WBC (0); Platelet Count 340 Thou/mm3 (140-440); RDW Standard Deviation 51.2 fL (36.4-46.3); Red Blood Count 4.03 Miln/mm3 (4.00-5.20); White Blood Count 6.7 Thou/mm3 (3.6-11.0)
[2024-12-22 06:53] LABS: Alanine Aminotransferase 7 U/L (10-49); Albumin, Serum 3.0 gm/dL (3.4-4.8); Albumin/Globulin Ratio 1.2 (1.2-2.2); Alkaline Phosphatase 52 U/L (46-116); Anion Gap 15 (7-16); Aspartate Amino Transferase 19 U/L (0-34); BUN/Creatinine Ratio 33 Ratio (12-20); Bilirubin,Total 0.3 mg/dL (0.3-1.2); Blood Urea Nitrogen 26 mg/dL (9-23); Calcium 9.0 mg/dL (8.3-10.6); Calcium (Corrected) 9.8 mg/dL (8.5-10.1); Carbon Dioxide 18.0 mMol/L (20.0-31.0); Chloride 106 mMol/L (98-107); Creatinine (Component) 0.8 mg/dL (0.6-1.3); Estimated Creatinine Clearance 43.2 mL/min (>60); Globulin 2.5 gm/dL (2.3-3.5); Glucose 137 mg/dL (74-106); Magnesium 2.3 mg/dL (1.6-2.6); Osmolality,Calculated 284 (275-295); Phosphorous 3.0 mg/dL (2.4-5.1); Potassium 4.0 mMol/L (3.4-5.1); Sodium 139 mMol/L (136-145); Total Protein 5.5 gm/dL (5.7-8.2); eGFR > 60 See Note
--- NOTE | 2024-12-22 08:20 | ESPR_ITS ---
<Statement entered by Imer Matson MD - 12/22/24 20:44> Patient seen and examined at bedside, no acute overnight events. I discussed and supervised with the internetworking technician physician who took care of this patient. I personally saw and examined the patient. I agree with most of the assessment and plan. EGD showed extensive esophagea ulcers with oozing blood and gastritis. Started on PUD, continuing IV Protonix. Ordered CMV and HIV, HIV negative. ST eval, noted patient needed assistance with feeding, recommended chopped diet. CATE resolved, IVF discontinued. Plan of care discussed with attending Dr. Imer Matson MD PGY-2 Documentation for date of: 12/22/24 Subjective Subjective Interval history: No acute events overnight, monitor nausea and small emesis after speech evaluation. Zofran given Patient underwent EGD with Dr. Palomares yesterday which demonstrated esophageal ulcers and inflamed stomach Patient placed on pantoprazole 80 mg IV had peptic ulcer diet, speech was able to evaluate patient this morning noting mild oral dysphagia and recommended soft chopped food with peptic ulcer diet Exam Vital Signs Temp Pulse Resp BP Pulse Ox O2 Del Method O2 Flow Rate 97.5 F 89 18 119/77 94 L Room Air 3 12/22/24 08:00 12/22/24 08:00 12/22/24 08:00 12/22/24 08:00 12/22/24 08:00 12/22/24 08:00 12/21/24 20:05 vital signs stable within normal limits Narrative Exam GENERAL: no acute distress, AAO x 2 (oriented to self, and , oriented to place (knows that she is in [place], not that she is in the hospital) , comfortably laying in bed HEENT: Head AT/ NC. Mucous membranes moist, poor dentition. CARDIOVASCULAR: RRR. Normal S1/S2, No m/r/g. No pitting edema of bilateral LEs. RESPIRATORY: CTAB. No wheezing, rhonchi, crackles. GASTROINTESTINAL: Abdomen soft, non tender no palpable masses. Bowel sounds present MUSCULOSKELETAL:? No cyanosis or edema, no visible joint swelling. NEUROLOGICAL: pt w hx of dementia, awake and alert, oriented to self and place, moving all extremity spontaneously, heat engineering teacher grossly intact. PSYCHIATRIC: not agitated, normal mood and affect. SKIN: No obvious rashes, no jaundice, normal turgor. Objective Labs 12/23/24 04:39 12/23/24 04:39 Labs: Laboratory Results - last 24 hr 12/22/24 04:53 WBC 6.7 RBC 4.03 Hgb 11.3 L Hct 33.8 L MCV 84 MCH 28.0 MCHC 33.4 RDW Std Deviation 51.2 H Plt Count 340 D Neut % (Auto) 81 H Lymph % (Auto) 9 L [place] % (Auto) 9 Eos % (Auto) 1 Baso % (Auto) 0 Neut # (Auto) 5.4 Lymph # (Auto) 0.6 L [place] # (Auto) 0.6 Eos # (Auto) 0.0 Baso # (Auto) 0.0 Immature Gran # (Auto) 0.06 H Absolute Nucleated RBC 0.00 Immature Gran % 1 H Nucleated RBC % 0 Sodium 139 Potassium 4.0 Chloride 106 Carbon Dioxide 18.0 L Anion Gap 15 BUN 26 H Creatinine 0.8 Estim Creat Clear Calc 43.2 L eGFR > 60 BUN/Creatinine Ratio 33 H Glucose 137 H Calculated Osmolality 284 Calcium 9.0 Corrected Calcium 9.8 Phosphorus 3.0 Magnesium 2.3 Total Bilirubin 0.3 AST 19 ALT 7 L Alkaline Phosphatase 52 Total Protein 5.5 L Albumin 3.0 L Globulin 2.5 Albumin/Globulin Ratio 1.2 hemoglobin stable Creatinine within normal limits CMV labs pending HIV rapid antibody negative Quality Measures Quality Measures VTE prophylaxis Advance care planning discussed with:: patient and child Assessment & Plan Assessment Current Active Medications: Generic Name Dose Route Start Last Admin Trade Name Freq PRN Reason Stop Dose Admin Acetaminophen 650 mg 12/20/24 03:01 Acetaminophen 325 Mg Tablet PO 01/19/25 03:00 Q6H PRN Pain 1-3 and/or Fever >100.1 Dextrose 25 ml 12/20/24 03:01 Dextrose 50%-Water Inj 50 Ml Syringe IV 01/19/25 03:00 Q15MIN PRN BG 50-70 responsive npo pt Dextrose 50 ml 12/20/24 03:01 Dextrose 50%-Water Inj 50 Ml Syringe IV 01/19/25 03:00 Q15MIN PRN BG <50 OR BG <70 & pt unresponsive Donepezil HCl 5 mg 12/20/24 21:00 12/21/24 21:09 Donepezil Hcl 5 Mg Tablet PO 01/19/25 20:59 Not Given HS FAUSTINA Glucagon 1 mg 12/20/24 03:01 Glucagon Inj 1 Mg Vial IM Q15MIN PRN BG <70, and no IV access Insulin Human Lispro 0 unit 12/20/24 12:00 12/22/24 08:10 Insulin Lispro (Admelog) 1 Unit/0.01 Ml Unit SC 01/19/25 11:59 Not Given Q6HR FAUSTINA Protocol Levothyroxine Sodium 88 mcg 12/21/24 06:00 12/22/24 05:35 Levothyroxine Sodium 88 Mcg Tablet PO 01/20/25 05:59 Not Given ACBR FAUSTINA Morphine Sulfate 2 mg 12/20/24 03:01 Morphine Sulf Inj 10 Mg/Ml Vial IVP 12/25/24 03:00 Q2H PRN PAIN SCALE 7-10 (Severe Ondansetron HCl 4 mg 12/20/24 03:01 Ondansetron Inj 2 Mg/Ml Inj 2 Ml IVP 01/19/25 03:00 Q6H PRN NAUSEA OR VOMITING Protocol Pantoprazole Sodium 80 mg 12/21/24 21:00 12/22/24 08:15 Pantoprazole Inj 40 Mg Vial IVP 01/20/25 20:59 80 mg BID FAUSTINA Administration Sennosides 1 tab 12/20/24 03:01 Senna Tablet PO 01/19/25 03:00 QDAY PRN constipation Protocol Plan 83-year-old female with past medical history of hyperlipidemia, ikg-owmuoyp-xkkbipjzc type 2 diabetes, hypothyroidism, dementia presenting to the ED on 12/20 with episode of hematemesis admitted for upper GI bleed with close monitoring of hemoglobin (Hgb stable @ 11). EGD performed yesterday revealed esophageal ulcers and stomach inflammation, speech eval completed found to have mild oral dysphagia, started on peptic ulcer diet with/soft texture, started on pantoprazole 80 mg twice daily, and nystatin p.o., pending GI clearance with plan for discharge tomorrow. #Acute blood loss anemia #Upper GI bleed # Esophageal ulcers #Thrombocytosis As stated in the HPI above, patient's been having multiple episodes of hematemesis with brown vomitus noted Patient denies having any risk factors such as past medical history of PUD, history of taking NSAIDs or aspirin On assessment, patient does have some brown sputum in oropharynx and and dark speckling in ears Patient does not have any abdominal tenderness on deep palpation In the ED, patient started becoming tachycardic and hypotensive and hemoglobin dropped from 14.2-11.8, platelets of 487 GI consulted, EGD performed with esophageal ulcers and stomach inflammation, likely the source of patient hematemesis on intake,appreciate recs Hgb stable at 11, CTM Dx: - Daily CBC - GI consulted, appreciate recommendations - EGD performed 12/21 demonstrated multiple esophageal ulcers and inflamed stomach - Pending CMV labs - HIV negative Tx - Transfuse if hemoglobin drop <7 - Start IV Protonix 80 twice daily per GI recs - Start nystatin p.o. - Peptic ulcer diet - Aspiration precaution and head of bed greater than 30 degrees #Poor PO Intake #Frailty #Mild Oral Dysphagia likely 2/2 esophogeal ulcers visualized on egd per family, pt reports difficulty with swallowing at home, which may be contributing to her poor PO intake and subsequent frailty per pt family, within the past month pt has had decreased appetite and 2/2 dementia is also possibly forgetting to eat. Pt has lost weight about 8% of body weight due to poor intake Dx - Speech consulted appreciate recs, dysphagia advanced/thin liquids - dietitian consulted appreciate recs: Patient amenable to vanilla Glucerna shakes #Sepsis with evidence of end organ damage (CATE) #CATE (Cr 0.9 from 1.2)- RESOLVED Ddx prerenal vs intra vs post renal, favor prerenal given improving Cr with fluids Patient presented with creatinine of 1.6 with a baseline between 1.1 and 1.2 eGFR is 57, CKD stage IIIa Likely secondary to patient having acute blood loss, hypovolemia BUN/creatinine ratio greater than 20-1 pt takes Jardiance at home Plan: - DC IV fluids given patient able to tolerate liquids and resolution of prerenal CATE - Avoid nephrotoxic agents - Renally dose medications when applicable - Monitor with morning labs #Electrolyte abnormalities #mild Hypermagnesium- RESOLVED consider disturbances, may have be 2/2 GI losses given recent emesis. Dx - Daily CMP, Mg, and Phos Tx - Replete as needed - cont maintence fluids with LR CHRONIC #Jdn-qxihchp-ivqnufsvp type 2 diabetes Last A1c of 7.6 on November 2024 Plan: Sliding scale insulin every 6 #Hypothyroidism Patient on levothyroxine 88 mcg Premeal a.m. Plan: Restart home medication #Dementia As per HPI above, patient's daughter states that her mental status has been progressively declining in the past several months but severe worsening in the past month. Patient is able to ambulate prior to this episode with a walker and a cane Patient on donepezil and memantine Plan: Restart home medications when appropriate Health Maintenance: Dispo: EGD completed speech eval and dietitian evals both completed hemoglobin stable pending GI clearance prior to discharge Lines: DC IV maintenance fluids Diet: Peptic ulcer diet with soft texture/thin liquids and Glucerna shakes Bowel: Senna as needed GI prophylaxis: On IV Protonix 80 twice daily DVT prophylaxis: SCD Code: Full Case discussed with my senior resident Dr. Matson Case discussed with my attending Dr. Nacho Carl MD PGY-1 Attending Provider Attestation/Addendum Yoko Ratliff DO, attest that I was physically present for the phillip portions of the service and evaluated the patient with the resident and I reviewed and discussed the case with the resident and agree with the resident's findings and plans of care as documented above Patient seen and evaluated this AM. She is very alert and sitting up in bed this morning. Daughter is at bedside. Patient was able to tolerate liquids. Pending speech eval to advance diet. If patient is able to tolerate PO intake and H/h stable, anticipate DC within next 24h. Patient was found to have several oozing esophageal ulcers which is the cause for bleeding. Will order CMV and HIV also to rule out cause for esophagitis. Will start patient on nystatin swish and swallow. Continue with protonix 80mg IV BID
--- NOTE | 2024-12-22 08:29 | PC.SS ---
Patient Jolene Wade is a 84 Year old female admitted for Upper GI Bleed. SS Contacted patient's grand daughter, Gracie Ulloa to discuss discharge plan and verify demographic and contact information. Patient grand daughter reports patient resides at with her daughter, Jennifer Lombardo who is patient's surrogate decision maker [phone]. Patient utilizes a cane to assist with ambulation as well as a Rollator Walker. Patient needs minimal assistance completing ADL's. pharmacy of choice is [facility]. PCP is Ijeoma Freeman. At time of discharge family will provide transportation. D/C plan: Home Next of Kin: Daughter, Jennifer Lombardo [phone], Grand daughter, Gracie Ulloa [phone]
[2024-12-22] MEDS: ONDANSETRON INJ 2 MG/ML INJ 2 ML 4 MG IVP (09:24)
[2024-12-22 11:09] LABS: HIV (1&2) Antibody Rapid Non-Reactive
[2024-12-22] MEDS: NYSTATIN SUSP 5 ML UDC PO ×3 (11:46→21:00)
[2024-12-22] MEDS: INSULIN LISPRO (AdmeLOG) 1 UNIT/0.01 ML UNIT SC ×3 (11:47→21:38)
--- NOTE | 2024-12-22 15:00 | PC.SS ---
Rounding note: treating GI bleed. Pending Dr. Palomares consult/recommendations.
[2024-12-22] MEDS: DONEPEZIL HCL 5 MG TABLET PO (21:00)
--- NOTE | 2024-12-22 22:16 | PD.IMPROG ---
Documentation for date of: 12/22/24 Subjective Subjective Interval history: Patient evaluated Hemoglobin hematocrit stable at 11.3 and 33.8 Upper endoscopy showed ulceration of the esophagus and diffuse gastritis Exam Vital Signs Temp Pulse Resp BP Pulse Ox O2 Del Method O2 Flow Rate 97.9 F 108 H 17 107/74 94 L Room Air 3 12/22/24 20:00 12/22/24 20:00 12/22/24 20:00 12/22/24 20:00 12/22/24 20:00 12/22/24 20:00 12/21/24 20:05 Objective Labs 12/22/24 04:53 12/22/24 04:53 Labs: Laboratory Results - last 24 hr 12/22/24 12/22/24 04:53 10:00 WBC 6.7 RBC 4.03 Hgb 11.3 L Hct 33.8 L MCV 84 MCH 28.0 MCHC 33.4 RDW Std Deviation 51.2 H Plt Count 340 D Neut % (Auto) 81 H Lymph % (Auto) 9 L [place] % (Auto) 9 Eos % (Auto) 1 Baso % (Auto) 0 Neut # (Auto) 5.4 Lymph # (Auto) 0.6 L [place] # (Auto) 0.6 Eos # (Auto) 0.0 Baso # (Auto) 0.0 Immature Gran # (Auto) 0.06 H Absolute Nucleated RBC 0.00 Immature Gran % 1 H Nucleated RBC % 0 Sodium 139 Potassium 4.0 Chloride 106 Carbon Dioxide 18.0 L Anion Gap 15 BUN 26 H Creatinine 0.8 Estim Creat Clear Calc 43.2 L eGFR > 60 BUN/Creatinine Ratio 33 H Glucose 137 H Calculated Osmolality 284 Calcium 9.0 Corrected Calcium 9.8 Phosphorus 3.0 Magnesium 2.3 Total Bilirubin 0.3 AST 19 ALT 7 L Alkaline Phosphatase 52 Total Protein 5.5 L Albumin 3.0 L Globulin 2.5 Albumin/Globulin Ratio 1.2 HIV 1&2 Antibody Rapid Non-Reactive Impressions Impression: Ulceration esophagus Diffuse gastritis Monitor CBC Continue Protonix Assessment & Plan Time Spent With Patient Time: Total time spent is greater than 50% in coordination of care (as documented) at patient's floor/unit and/or counseling patient:
[2024-12-23] VITALS: BP 114/76; PULSE 102; PULSE 92; RESP 17; TEMP 36.3; O2SAT 94
[2024-12-23 04:00] VITALS: BP 126/80; PULSE 86; RESP 16; TEMP 36.2; O2SAT 93
[2024-12-23] MEDS: NYSTATIN SUSP 5 ML UDC PO ×2 (05:28→13:10)
[2024-12-23] MEDS: LEVOTHYROXINE SODIUM 88 MCG TABLET PO (05:28)
[2024-12-23 06:26] LABS: Basophils # (Auto) 0.0 Thou/mm3 (0.0-0.2); Basophils % (Auto) 0 % (0-2.5); Eosinophils # (Auto) 0.1 Thou/mm3 (0.0-0.5); Eosinophils % (Auto) 1 % (0-10); Hematocrit 38.2 % (36.0-46.0); Hemoglobin 12.5 g/dL (12.0-16.0); Immature Granulocytes Auto 0.11 Thou/mm3 (0.00-0.00); Lymphocytes # (Auto) 0.7 Thou/mm3 (1.0-4.8); Lymphocytes % (Auto) 9 % (10-50); Mean Corpuscular HGB Conc 32.7 g/dl (31.0-37.0); Mean Corpuscular Hemoglobin 28.5 pg (25.0-35.0); Mean Corpuscular Volume 87 fL (80-100); Monocytes # (Auto) 0.6 Thou/mm3 (0.0-0.8); Monocytes % (Auto) 9 % (0-12); Neutrophils # (Auto) 6.0 Thou/mm3 (1.8-7.7); Neutrophils % (Auto) 80 % (37-80); Nucleated Red Blood Cell # 0.02 Thou/mm3 (0.00-0.00); Nucleated Red Blood Cell % 0 /100 WBC (0); Platelet Count 377 Thou/mm3 (140-440); RDW Standard Deviation 53.3 fL (36.4-46.3); Red Blood Count 4.38 Miln/mm3 (4.00-5.20); White Blood Count 7.4 Thou/mm3 (3.6-11.0)
[2024-12-23 07:06] LABS: Alanine Aminotransferase < 7 U/L (10-49); Albumin, Serum 3.2 gm/dL (3.4-4.8); Albumin/Globulin Ratio 1.1 (1.2-2.2); Alkaline Phosphatase 60 U/L (46-116); Anion Gap 10 (7-16); Aspartate Amino Transferase 19 U/L (0-34); BUN/Creatinine Ratio 29 Ratio (12-20); Bilirubin,Total 0.3 mg/dL (0.3-1.2); Blood Urea Nitrogen 26 mg/dL (9-23); Calcium 9.5 mg/dL (8.3-10.6); Calcium (Corrected) 10.1 mg/dL (8.5-10.1); Carbon Dioxide 24.8 mMol/L (20.0-31.0); Chloride 105 mMol/L (98-107); Creatinine (Component) 0.9 mg/dL (0.6-1.3); Estimated Creatinine Clearance 38.7 mL/min (>60); Globulin 2.8 gm/dL (2.3-3.5); Glucose 162 mg/dL (74-106); Magnesium 2.4 mg/dL (1.6-2.6); Osmolality,Calculated 288 (275-295); Phosphorous 2.4 mg/dL (2.4-5.1); Potassium 4.1 mMol/L (3.4-5.1); Sodium 140 mMol/L (136-145); Total Protein 6.0 gm/dL (5.7-8.2); eGFR > 60 See Note
[2024-12-23 07:58] VITALS: BP 106/71; PULSE 95; RESP 18; TEMP 36.2; O2SAT 95
[2024-12-23] MEDS: INSULIN LISPRO (AdmeLOG) 1 UNIT/0.01 ML UNIT SC ×2 (08:07→13:10)
[2024-12-23] MEDS: ONDANSETRON INJ 2 MG/ML INJ 2 ML 4 MG IVP (09:00)
[2024-12-23 12:00] VITALS: BP 108/74; PULSE 93; RESP 16; TEMP 36.3; O2SAT 95
[2024-12-23 12:49] VITALS: PULSE 103
--- NOTE | 2024-12-23 15:37 | PC.SS ---
SS follow up: met with patient and family at bedside to confirm the d/c plan. Family confirms they will take patient home and are agreeable with home health services. No preferred agency identified. Family informs their PCP has ordered a walker for the patient and needs to be picked up. Family has declined ambulance transport home, informing that they will transport patient via private vehicle. Family indicates, patients granddaughter Gracie Ulloa [phone] could be contacted for any home health needs. Updated KENNEY Colby on d/c plan and Dr. Griffith notified for request for home health orders needed for PT as PT Clare recommended home health.
[2024-12-23 16:00] VITALS: BP 122/83; PULSE 103; RESP 18; TEMP 36.2; O2SAT 92
--- NOTE | 2024-12-23 16:16 | PC.PT ---
This PT was in the different room with the nurse when the BURLAP ROLL COVERER informed the Nurse that patient is pending dc and cannot transfer. This PT screen the patient if PT intervention is needed. 2 daughters at bedside. Patient's PLOF was Patient ambulates x short distance only and very slow. Patient has a borrowed walker. They said that her PCP already prescribed a walker. Patient were able to sit up on the EOB x min A, STS and transfers x min A and ambulate x moderate A x 8 feet. Patient has decrease step length, slow fidelia and decrease toe clearance. Patient returned to bed. This PT educated the daughters that she can benefit for homehealth PT to increase her ms strength. They have their reservations and one daughter said she will think about it. RN is at bedside as well. This PT informed the daughters the benefit of homehealth PT. They finally agreed. ASSOCIATE PRODUCT INTEGRITY ENGINEER made aware.
--- NOTE | 2024-12-23 17:56 | ESDS_ITS ---
<Statement entered by Yoko Griffith DO - 12/23/24 20:53> I, Yoko Griffith DO, attest that I was physically present for the phillip portions of the service and evaluated the patient with the resident and I reviewed and discussed the case with the resident and agree with the resident's findings and plans of care as documented above <Statement entered by Imer Matson MD - 12/23/24 19:46> Patient seen and examined at bedside, no acute overnight events. I discussed and supervised with the security intern physician who took care of this patient. I personally saw and examined the patient. I agree with most of the assessment and plan. Plan of care discussed with attending Dr. Griffith. Imer Matson MD PGY-2 Planned Discharge Date 12/23/24 DS: Providers Provider Date of admission: 12/20/24 03:01 Primary care physician: Physician No Primary/Family Admitting Provider: Giovanni Cole MD Attending Provider on Admission: Yoko Griffith DO Consults: 12/20/24 02:37 Consult to Gastroenterology Stat Comment: Consulting Provider: Maral Palomares 12/20/24 09:35 Referral Speech Therapy Routine Comment: Instructions: pt NPO for possible EGD admit for +GI bleed. Pt family reports difficulty swallowing at home. Will need eval when no longer NPO for Procedure 12/21/24 11:32 Referral Speech Therapy Routine Comment: 12/21/24 11:33 Referral Registered Dietitian Routine Comment: Attending Provider on DC: Dr. Griffith Discharging Provider: Lissa Carl, DS: Diagnosis Problem List Completed Was Problem List Reviewed/Reconciled?: Yes Hospital Course Hospital Course Hospital course: Ms. Alston is an 83-year-old woman with a history of HLD, kdr-ylwqsyk-ogohyzeyg type 2 diabetes, hypothyroidism, dementia, and weight loss secondary to poor p.o. intake likely due to pain with swallowing who presented to the emergency department with hematemesis, nausea vomiting and abdominal pain. Hemoglobin stable, EGD performed revealed diffuse esophageal ulcers and stomach inflammation which likely contributed to patient difficulty with p.o. intake. Speech eval was conducted while inpatient, patient with mild esophageal dysphagia and recommended food with soft texture of note patient does not tolerate dairy well with emesis 2 times after milk and cheese. Patient received high-dose PPI post EGD and nystatin p.o. for esophageal ulcers. Patient had an CATE which resolved with IV fluids likely prerenal. Diagnoses #Acute blood loss anemia #Upper GI bleed #Esophageal ulcers #Thrombocytosis #Frailty #mild oral dysphagia likely secondary to oral esophageal ulcers #Sepsis with evidence of endorgan damage (CATE) #CATE?resolved #Electrolyte abnormalities #Aqp-gurzddh-rwzuzijcr type 2 diabetes #Hypothyroidism #Dementia Hospital discharge plan you have been started on the following medications: -Protonix 40mg twice daily -Reglan 5mg twice daily Please continue taking all home conchita as previously prescribed. Please follow up with your primary doctor within 7-10 days. Please return to the ED if you develop new or worsening symptoms. Case discussed with my senior resident Dr. Matson Case discussed with my attending Dr. Nacho Carl MD PGY-1 Status at Discharge Functional status at discharge: uses cane/walker Time Spent with Patient Time attestation: Total time spent providing and/or coordinating discharge services: Time spent: Greater than 30 minutes Home Health Home Health Referral Orders: 12/23/24 15:34 Home Health Referral Routine Reason For Exam: dysphagia Home-Bound The patient must either because of illness or injury, need the aid of supportive devices such as crutches, canes, wheelchairs, and walkers; the use of special transportation; or the assistance of another person in order to leave their place of residence; OR have a condition such that leaving his or her home is medically contraindicated. In addition, the patient also meets the following criteria: patient is normally unable to leave the home and leaving home requires considerable taxing effort. Addendum to Home Health Certification Practitioner's Certification: I certify that the patient has been under my care in the hospital and the care of attending physician (see below). We had a rzft-sv-wwku encounter on (see date below). My clinical findings indicate that the patient is home bound per the above criteria and the Home Health Services noted in these orders are medically necessary. The primary reason for the noqi-ex-ybsf encounter is related to the fact that the patient requires home health services. Date Certifying Zooh-ye-Pnvt Physician Encounter: 12/20/24 Physician's Name who will Assume Oversight for HH Services: Ijeoma Freeman VULCANIZER RUBBER PLATE - Community Resources: No PT to Evaluate: Yes PT to evaluate and provide a treatmnet plan to increase patient's mobility and strength. Wound Care: No IV Therapy: No RN Safety Evaluation: Yes RN to evaluate and create a plan of care that will produce positive outcomes. Palliative Treatment: No Palliative treatment and evaluate the need for hospice. Home Health Aide - Personal Care: Yes Home Health Aide to assist with any ADL's. Exam Vital Signs Temp Pulse Resp BP Pulse Ox O2 Del Method O2 Flow Rate 97.2 F 103 H 18 122/83 92 L Room Air 3 12/23/24 16:00 12/23/24 16:12/23/24 16:12/23/24 16:12/23/24 16:12/23/24 16:12/21/24 20:05 Narrative Exam GENERAL: no acute distress, AAO x 2 (oriented to self, and , oriented to place (knows that she is in [place], not that she is in the hospital) , comfortably laying in bed HEENT: Head AT/ NC. Mucous membranes moist, poor dentition. CARDIOVASCULAR: RRR. Normal S1/S2, No m/r/g. No pitting edema of bilateral LEs. SCDs in place RESPIRATORY: CTAB. No wheezing, rhonchi, crackles. GASTROINTESTINAL: Abdomen soft, non tender no palpable masses. Bowel sounds present MUSCULOSKELETAL:? No cyanosis or edema, no visible joint swelling. NEUROLOGICAL: pt w hx of dementia, awake and alert, oriented to self and location, moving all extremity spontaneously, client service and consulting manager grossly intact. PSYCHIATRIC: not agitated, normal mood and affect. SKIN: No obvious rashes, no jaundice, normal turgor. Discharge Plan Plan Patient Disposition: Home w/HOME HEALTH Patient condition on transfer: Stable and Benefits outweigh risks Care Plan Goals: You have been started on the following medications: -Protonix 40mg twice daily -Reglan 5mg twice daily Please continue taking all home conchita as previously prescribed. Please follow up with your primary doctor within 7-10 days. Please return to the ED if you develop new or worsening symptoms. Ruiz comenzado a faina los siguientes medicamentos: - Protonix 40 mg dos veces al d?a - Regulan 5 mg dos veces al d?a Contin?e tomando todos los medicamentos recetados previamente. Consulte con golden m?dico de cabecera en un plazo de 7 a 10 d?as. Regrese a urgencias si presenta s?ntomas nuevos o si estos empeoran. Prescriptions/Referrals Prescriptions/Med Rec: New pantoprazole [Protonix] 40 mg tablet,delayed release (DR/EC) 40 mg PO BID 30 Days Qty: 60 0RF metoclopramide HCl [Reglan] 5 mg tablet 5 mg PO BID 30 Days Qty: 60 0RF Continued atorvastatin 10 mg tablet 10 mg PO HS Patient Comments: TAKE 1 TABLET BY MOUTH EVERY DAY Jardiance 25 mg tablet 25 mg PO DAILY Patient Comments: TAKE 1 TABLET BY MOUTH EVERY MORNING donepezil 5 mg tablet 5 mg PO HS Patient Comments: TAKE 1 TABLET BY MOUTH EVERY DAY IN THE EVENING levothyroxine 88 mcg tablet 88 mcg PO ACBR Patient Comments: TAKE 1 TABLET BY MOUTH EVERY DAY Januvia 100 mg tablet 100 mg PO QDAY Referrals: No Primary/Family,Physician [Primary Care Provider] - Patient/Caregiver Discharge Instructions Meds to Beds: No Discharge Activity: activity as tolerated Education Materials: Understanding Gastritis, Understanding Dementia, Understanding Gastric Ulcers Print Language: Citizen Of [place] Stand Alone Forms: Maribell Award Info., Patient Portal Info Letter Discharge Order Discharge Orders: Discharge (Routine); Ordered 12/23/24 Ordered By: Imer Matson Quality Discharge Quality Measures VTE prophylaxis
--- NOTE | 2024-12-24 13:11 | PC.CM ---
Addendum entered by Darryn Cifuentes RN 12/24/24 14:46: Patient accepted by [facility], start of care is 12/27/24. Original Note: Home health packet sent to [facility] via [facility], pending response at this time.
== END 2024-12-23 16:15 | disposition home health service (06) | DRG 871 ==
LOC: SERX 12-20 02:41 → SERHOLD 12-20 03:34 → S3SX 12-20 08:23
PROVIDERS: Specialist; Admitting Provider Student in an Organized Health Care Education/Training Program; Emergency Provider Student in an Organized Health Care Education/Training Program; Visit Provider Internal Medicine
PROC: 0DJ08ZZ Inspection of Upper Intestinal Tract, Via Natural or Artificial Opening Endoscopic (ICD-10-PCS; CPT 43239; principal; 2024-12-21 20:00)
DX: A41.9 Sepsis, unspecified organism (principal); K22.11 Ulcer of esophagus with bleeding; K29.71 Gastritis, unspecified, with bleeding; D62 Acute posthemorrhagic anemia; N17.9 Acute kidney failure, unspecified; E87.1 Hypo-osmolality and hyponatremia; F03.90 Unspecified dementia, unspecified severity, without behavioral disturbance, psychotic disturbance, mood disturbance, and anxiety; E78.5 Hyperlipidemia, unspecified; E11.22 Type 2 diabetes mellitus with diabetic chronic kidney disease; N18.31 Chronic kidney disease, stage 3a; E03.9 Hypothyroidism, unspecified; F17.210 Nicotine dependence, cigarettes, uncomplicated; D75.839 Thrombocytosis, unspecified; E86.1 Hypovolemia; F17.200 Nicotine dependence, unspecified, uncomplicated; R13.11 Dysphagia, oral phase; R65.20 Severe sepsis without septic shock; E83.41 Hypermagnesemia
CPT/HCPCS: 36415; 80053; 81001; 82150; 83690; 83735; 84100; 84484; 85014; 85018; 85025; 86644; 86645; 86703; 87497; 92526; 92610; J1200; J1815; J2250; J2405; J2470; J3010; J3480; J7030; J7120; A9270